=== PATIENT | female | born 1960 | race Caucasian/White ===

== ENCOUNTER 2018-11-28 19:23 | Emergency (ER) | payer OTHER ==
--- NOTE | 2018-11-28 20:04 | PDOC ---
History of Present Illness - General Stated Complaint: HYPERTENSION Time Seen by Provider: 11/28/18 19:33 - History of Present Illness Initial Comments: 11/28/18 20:08 58y/o F hx of diabetes, HTN, HLD, CAD s/p stent placement, left Carotid endardectomy, presents today from her Doctor's office with elevated BP. At her doctor's office her BP was 240/110 she was given Edarbyclor and bystolic. BP temporarily improved to 160's systolic but became elevated again shortly after. She did not take her BP meds this a.m. She experienced some lightheadedness while at the doctor's office but reports symptoms have resolved , She denies any headache, chest pain, abdominal pain, SOB, current lightheadedness, weakness or paresthesias, fevers/chills. She reports some dysuria. Past History - Past Medical History Allergies/Adverse Reactions: Allergies Allergy/AdvReac Type Severity Reaction Status Date / Time metformin Allergy Intermediate Rash Verified 11/28/18 21:31 Home Medications: Ambulatory Orders Aspirin 81 mg PO DAILY 11/28/18 Atorvastatin Ca [Lipitor] 80 mg PO HS 11/28/18 Ergocalciferol (Vitamin D2) [Vitamin D2] 50,000 unit PO WEEKLY 11/28/18 Hydrochlorothiazide [Hctz -] 12.5 mg PO DAILY 11/28/18 Metoprolol Succinate 50 mg PO DAILY 11/28/18 Sitagliptin Phosphate [Januvia] 100 mg PO DAILY 11/28/18 Review of Systems - Review of Systems Constitutional: No: Chills, Fever HEENTM: No: Eye Pain, Blurred Vision Respiratory: No: Cough Cardiac (ROS): No: Chest Pain, Syncope ABD/GI: No: Abdominal Distended, Blood Streaked Bowels : Yes: Burning, Dysuria Musculoskeletal: No: Back Pain Integumentary: No: Bruising, Change in Color Neurological: Yes: Symptoms reported, Headache *Physical Exam - Physical Exam General Appearance: Yes: Nourished, Appropriately Dressed. No: Apparent Distress HEENT: positive: EOMI, Normal Voice. negative: Scleral Icterus (R), Scleral Icterus (L) Neck: positive: Supple. negative: Tender Respiratory/Chest: positive: Lungs Clear, Normal Breath Sounds. negative: Chest Tender, Respiratory Distress, Accessory Muscle Use Cardiovascular: positive: Regular Rhythm, Regular Rate, S1, S2. negative: Edema , JVD Vascular Pulses: Dorsalis-Pedis (R): 2+, Doralis-Pedis (L): 2+ Gastrointestinal/Abdominal: positive: Normal Bowel Sounds, Soft. negative: Pulsatile Mass, Increased Bowel Sounds, Distended, Guarding, Rebound Musculoskeletal: positive: Normal Inspection. negative: CVA Tenderness Extremity: positive: Normal Capillary Refill, Normal Inspection, Normal Range of Motion Integumentary: positive: Normal Color, Dry, Warm Neurologic: positive: sugar coating hand II-XII NML intact, Fully Oriented, Alert, Normal Mood/ Affect, Normal Response, Motor Strength 07/20 ED Treatment Course - LABORATORY CBC & Chemistry Diagram: 11/28/18 21:10 11/28/18 21:10 Medical Decision Making - Medical Decision Making 11/28/18 20:13 58y/o F hx of diabetes, HTN, HLD, CAD s/p stent placement, left Carotid endardectomy, presents today from her Doctor's office with elevated BP cbc, cmp, ua, ekg, troponin, ekg Meds: 25mg po hydralazine 11/28/18 21:38 Pt. unable to give us any urine at this time. 11/28/18 22:07 BUN/Cr: 28/1.4, creatinine slightly elevated from upper limit of 1.3 Troponin pending 11/28/18 22:23 Troponin < 0.02 EKG: NSR , left ventricular hypertrophy T wave inversions, no ST elevations, Repeat blood pressure 186/77. Pt counseled on the importance of taking her medications and the sequelae of uncontrolled hypertension (i.e kidney failure, stroke, MS, ventricular hypertrophy). advised on possible ways to remember to take meds i.e setting reminders and keeping medications at bedside. Advised on lifetstyle modification as well (low salt intake, regular exercise, diet) Discharge with f/up to her PCP Dr. Caceres 11/28/18 22:33 11/28/18 23:08 *DC/Admit/Observation/Transfer Diagnosis at time of Disposition: Hypertension Qualifiers: Hypertension type: unspecified Qualified Code(s): I10 - Essential (primary) hypertension - Discharge Dispostion Disposition: HOME Condition at time of disposition: Stable - Referrals Referrals: Bridget Caceres MD [Primary Care Provider] - - Patient Instructions Printed Discharge Instructions: DI for High Blood Pressure, How to Monitor Your Blood Pressure at Home Additional Instructions: You were seen in the ER for elevated blood pressure. You were given medication in the ER.Your care is not complete until you follow up with your primary care doctor. It is important that you do so within the next few days ideally by Saturday. Take your home medications as prescribed by your primary care doctor. Please eat a low salt, low cholesterol diet. Please exercise regularly and maintain a healthy body weight. Please take your blood pressure medication as prescribed. Come back to the ER if any of your symptoms worsen. You develop headache, fever , chills, abdominal pain. - Post Discharge Activity
[2018-11-28] MEDS ORDERED: hydrALAZINE HCL 20 MG/ML VIAL IVPUSH ONE (20:08)
[2018-11-28 20:10] VITALS: TEMP 97.9; BMI 25.6
--- NOTE | 2018-11-28 20:13 | PDOC ---
Attending Attestation - Resident Resident Name: RachelDayamiPerrybetzaidanestor - HPI HPI: 11/28/18 23:23 Pt presents to the ED after sent in by Drs office for hypertension. Patient admits to non compliance with her medications today. Given bystolic in MDs office, but without relief. Denies chest pain or shortness of breath. Denies headache. States that she felt lightheaded initially, but now has no complaints. - Physicial Exam PE: 11/28/18 23:43 Agree with resident exam. PAtient is alert and oriented and in no acute distress. Lungs are clear. Heart regular rate and rhythm. Abdomen soft, non tender, non distended. - Medical Decision Making 11/28/18 23:45 Pt presents to the ED complaining of asymptomatic HTN. labs checked to evaluate for renal failure and are negative. BP improved after hydralizine in the ED. Will discharge with instructions to take her medication and follow up with PMD on Saturday.
[2018-11-28] MEDS ORDERED: hydrALAZINE HCL 20 MG/ML VIAL ONE (20:38)
[2018-11-28] MEDS ORDERED: hydrALAZINE HCL 25 MG TABLET (FP) PO ONE (21:03)
[2018-11-28 21:32] LABS: BASO % 0.8 % (0-2.0); EOS % 0.8 % (0-4.5); HEMATOCRIT 34.5 % (32.4-45.2); HEMOGLOBIN 11.5 GM/dL (10.7-15.3); LYMPH % 19.2 % (8-40); MCH 26.9 pg (25.7-33.7); MCHC 33.4 g/dl (32.0-36.0); MEAN CELL VOLUME 80.6 fl (80-96); MONO % 3.5 % (3.8-10.2); NEUT % 75.7 % (42.8-82.8); PLATELET COUNT 362 K/MM3 (134-434); RBC 4.28 M/mm3 (3.60-5.2); RDW 15.6 % (11.6-15.6); WHITE BLOOD COUNT 10.7 K/mm3 (4.0-10.0)
[2018-11-28 21:56] LABS: ALBUMIN 3.2 g/dl (3.4-5.0); BILIRUBIN,TOTAL 0.2 mg/dL (0.2-1); CALCIUM 9.3 mg/dL (8.5-10.1); CREATININE 1.4 mg/dL (0.55-1.3); TOT PROT 7.8 g/dl (6.4-8.2)
[2018-11-28 22:29] VITALS: BP 186/77; PULSE 64
--- NOTE | 2018-11-29 15:02 | EKG ---
Test Reason : Blood Pressure : / mmHG Vent. Rate : 068 BPM Atrial Rate : 068 BPM P-R Int : 194 ms QRS Dur : 090 ms QT Int : 452 ms P-R-T Axes : 028 -08 159 degrees QTc Int : 480 ms NORMAL SINUS RHYTHM LEFT VENTRICULAR HYPERTROPHY WITH REPOLARIZATION ABNORMALITY PROLONGED QT ABNORMAL ECG NO PREVIOUS ECGS AVAILABLE Confirmed by MD SINTIA, PETEY ([id number]) on 11/29/2018 3:02:21 PM Referred By: Confirmed By:PETEY PATRICIO MD
== END 2018-11-28 22:38 | disposition home or self-care (01) ==
LOC: JER 19:23
DX: I10 Essential (primary) hypertension (principal); I25.10 Atherosclerotic heart disease of native coronary artery without angina pectoris; Z95.5 Presence of coronary angioplasty implant and graft; E78.5 Hyperlipidemia, unspecified
CPT/HCPCS: 36415; 80053; 84484; 85025; 93005; 93010; 99282-25

== ENCOUNTER 2021-06-23 12:44 | Inpatient (IN) | payer OTHER ==
[2021-06-23 13:24] VITALS: BMI 26.3
[2021-06-23] MEDS ORDERED: AZITHROMYCIN IVPB 500 MG in DEXTROSE 5%-WATER - 250 ML IVPB ONE (14:38)
[2021-06-23] MEDS ORDERED: VANCOMYCIN 1 GM in D5W (PRE-DOCKED) 1,000 MG/250 ML IVPB ONE (14:38)
[2021-06-23] MEDS ORDERED: LACTATED RINGERS SOLUTION 1000 ML INFUS.BAG IV ONE (14:40)
[2021-06-23] MEDS ORDERED: PIPERACILLIN/TAZOB 3.375 GM 3.375 GM in DEXTROSE 5%-WATER - 50 ML IVPB ONE (14:44)
[2021-06-23 14:48] LABS: VENOUS BASE EXCESS -3.9 mmol/L (-2-2); VENOUS O2 SATURATION 58.5 % (70-80); VENOUS PCO2 36.3 mmHg (38-52); VENOUS PH 7.375 (7.310-7.410)
[2021-06-23 14:50] LABS: BASO % 0.5 % (0-2.0); EOS % 1.4 % (0-4.5); HEMATOCRIT 30.1 % (32.4-45.2); LYMPH % 19.3 % (8-40); MCH 27.5 pg (25.7-33.7); MCHC 33.1 g/dl (32.0-36.0); MEAN CELL VOLUME 83.2 fl (80-96); MEAN PLT VOLUME 8.5 fl (7.5-11.1); MONO % 5.3 % (3.8-10.2); NEUT % 73.5 % (42.8-82.8); PLATELET COUNT 421 10^3/uL (134-434); RBC 3.62 M/mm3 (3.60-5.2); RDW 14.9 % (11.6-15.6); WHITE BLOOD COUNT 10.4 K/mm3 (4.0-10.0)
[2021-06-23] MEDS ORDERED: VANCOMYCIN 1 GRAM (PRE-DOCKED) 1,000 MG/250 ML BAG IVPB ONE (14:52)
[2021-06-23] MEDS ORDERED: AZITHROMYCIN IVPB 500 MG/250 ML BAG IVPB ONE (14:52)
[2021-06-23 14:57] LABS: INR 0.97 (0.83-1.09); PROTHROMBIN TIME (PATIENT) 11.2 SEC (9.7-13.0)
[2021-06-23 15:00] LABS: ACTIVATED PTT 29.2 SECONDS (25.2-36.5)
[2021-06-23 15:12] LABS: ALBUMIN 2.3 g/dl (3.4-5.0); BLOOD UREA NITROGEN 50.4 mg/dL (7-18); CALCIUM 8.5 mg/dL (8.5-10.1)
[2021-06-23 15:17] LABS: BILIRUBIN,TOTAL 0.2 mg/dL (0.2-1); TOT PROT 6.1 g/dl (6.4-8.2)
[2021-06-23 15:23] LABS: CREATININE 2.6 mg/dL (0.55-1.3)
[2021-06-23 15:30] LABS: EPI CELLS 15 /uL (0-25.1); HYALINE CASTS 3 /uL (0-3.1); PH,URINE 5.5 (5.0-8.0); URINE APPEARANCE CLEAR; URINE BACTERIA 4 /uL (0-1359); URINE BILIRUBIN NEGATIVE (NEGATIVE); URINE COLOR YELLOW; URINE GLUCOSE (UA) 2+ (NEGATIVE); URINE KETONE NEGATIVE (NEGATIVE); URINE LEUK ESTERASE NEGATIVE (NEGATIVE); URINE NITRITE NEGATIVE (NEGATIVE); URINE PROTEIN 4+ (NEGATIVE); URINE RBC 5 /uL (0-23.9); URINE UROBILINOGEN 0.2 mg/dL (0.2-1.0); URINE WBC 9 /uL (0-25.8)
[2021-06-23] MEDS: INSULIN SLIDING SCALE (NOVOLOG) 1 VIAL SQ SCH (17:00)
[2021-06-23] MEDS ORDERED: PIPERACILLIN/TAZOB 3.375 GM 3.375 GM/50 ML BAG IVPB ONE (17:11)
[2021-06-23] MEDS ORDERED: DEXAMETHASONE SOD PHOSPHATE 10 MG/1 ML VIAL ONE (17:59)
[2021-06-23] MEDS ORDERED: ALBUTEROL SO4 2.5/IPRATROPIUM 0.5 INH SOL 3 ML VIAL.NEB. NEB ONE (18:02)
[2021-06-23] MEDS ORDERED: RACEPINEPHRINE IH SOL 2.25% 11.25 MG/0.5 ML VIAL NEB ONE ×2 (18:07→18:17)
[2021-06-23] MEDS ORDERED: RACEPINEPHRINE IH SOL 2.25% 11.25 MG/0.5 ML VIAL IH ONE (18:07)
[2021-06-23] MEDS ORDERED: DEXAMETHASONE SOD PHOSPHATE 20 MG/5 ML VIAL IVPB ONE (18:13)
[2021-06-23] MEDS: ALBUTEROL SO4 2.5/IPRATROPIUM 0.5 INH SOL 3 ML VIAL.NEB. NEB SCH ×4 (18:20→18:55)
[2021-06-23] MEDS: PIPERACILLIN/TAZOB 2.25 GM 2.25 GM in DEXTROSE 5%-WATER - 50 ML IVPB SCH (18:25)
[2021-06-23] MEDS ORDERED: FUROSEMIDE 40 MG/4 ML INJECTABLE VIAL ONE (19:39)
[2021-06-23] MEDS: FUROSEMIDE 40 MG/4 ML INJECTABLE VIAL IVPUSH SCH (19:46)
[2021-06-23 22:25] LABS: ARTERIAL BLD GAS O2 SATURATION 98.6 % (95-98); ARTERIAL BLOOD GAS BASE EXCESS -2.6 mmol/L (-2-2); ARTERIAL BLOOD GAS PO2 131.2 mmHg (80-100); ARTERIAL BLOOD GAS pH 7.402 (7.350-7.450)
[2021-06-23 22:31] LABS: ALLENS TEST POSITIVE
[2021-06-23 22:32] LABS: VENT MODE PSU; VENT RATE 12
[2021-06-23] MEDS ORDERED: HEPARIN NA (PORCINE) 5,000 UNITS/ML 1ML VIAL ONE (22:46)
[2021-06-23] MEDS ORDERED: ATORVASTATIN CA 80 MG TABLET (FP) ONE (22:46)
[2021-06-24] MEDS: ATORVASTATIN CA 80 MG TABLET (FP) PO SCH ×2 (00:59→22:06)
[2021-06-24] MEDS: HEPARIN NA (PORCINE) 5,000 UNITS/ML 1ML VIAL SQ SCH ×3 (00:59→22:05)
[2021-06-24] MEDS: INSULIN SLIDING SCALE (NOVOLOG) 1 VIAL SQ SCH ×5 (00:59→22:07)
[2021-06-24] MEDS ORDERED: PIPERACILLIN/TAZOB 2.25 GM 2.25 GM/50 ML BAG IVPB ONE (01:00)
[2021-06-24] MEDS: PIPERACILLIN/TAZOB 2.25 GM 2.25 GM in DEXTROSE 5%-WATER - 50 ML IVPB SCH ×3 (02:30→10:56)
[2021-06-24 09:17] LABS: BASO % 0.3 % (0-2.0); HEMATOCRIT 28.1 % (32.4-45.2); HEMOGLOBIN 9.5 GM/dL (10.7-15.3); LYMPH % 9.2 % (8-40); MCHC 33.9 g/dl (32.0-36.0); MEAN CELL VOLUME 82.6 fl (80-96); MEAN PLT VOLUME 8.2 fl (7.5-11.1); MONO % 1.7 % (3.8-10.2); NEUT % 88.8 % (42.8-82.8); PLATELET COUNT 381 10^3/uL (134-434); RBC 3.41 M/mm3 (3.60-5.2); RDW 14.5 % (11.6-15.6); WHITE BLOOD COUNT 8.5 K/mm3 (4.0-10.0)
[2021-06-24] MEDS ORDERED: PIPERACILLIN/TAZOBACTAM 2.25 GM VIAL IVPB ONE (09:25)
[2021-06-24] MEDS ORDERED: DEXTROSE 5%-WATER - 50 ML IVPB ONE (09:25)
[2021-06-24 09:32] LABS: CHLORIDE 105 mmol/L (98-107); SODIUM 137 mmol/L (136-145)
[2021-06-24 09:42] LABS: ANION GAP 11 MMOL/L (8-16); BLOOD UREA NITROGEN 52.6 mg/dL (7-18); CALCIUM 8.2 mg/dL (8.5-10.1); CO2 21 mmol/L (21-32); GLUCOSE,RANDOM 344 mg/dL (74-106); MAGNESIUM 1.9 mg/dL (1.8-2.4)
[2021-06-24 09:43] LABS: ALK PHOS 93 U/L (45-117); BILIRUBIN,TOTAL 0.3 mg/dL (0.2-1); SGPT/ALT 18 U/L (13-61); TOT PROT 5.8 g/dl (6.4-8.2); TRIGLYCERIDES 127 mg/dL (0-150)
[2021-06-24 09:44] LABS: HDL CHOLESTEROL 52 mg/dL (40-60); PHOSPHOROUS 4.7 mg/dL (2.5-4.9); SGOT/AST 20 U/L (15-37)
[2021-06-24 09:46] LABS: CHOLESTEROL 193 mg/dL (50-200); CREATININE 2.8 mg/dL (0.55-1.3); LDL CHOLESTEROL (ONLY SJRH) 117 mg/dL (5-100)
[2021-06-24] MEDS: ASPIRIN 81 MG CHEWABLE TABLETS PO SCH (09:47)
[2021-06-24] MEDS: LISINOPRIL 20 MG TABLET PO SCH (09:47)
[2021-06-24] MEDS: FUROSEMIDE 40 MG/4 ML INJECTABLE VIAL IVPUSH SCH (09:48)
[2021-06-24 09:53] LABS: ALBUMIN 1.8 g/dl (3.4-5.0)
[2021-06-24] MEDS ORDERED: HYDROCHLOROTHIAZIDE 12.5 MG CAPSULE (FP) PO SCH (10:00)
[2021-06-24] MEDS ORDERED: methylPREDNISolone NA SUCC 40 MG/1 ML VIAL IVPUSH SCH (18:00)
[2021-06-24 19:08] LABS: SARS-CoV-2 NAA Not Detected (Not Detected)
[2021-06-24] MEDS ORDERED: ATORVASTATIN CA 40 MG TABLET (FP) ONE (21:48)
[2021-06-24] MEDS: INSULIN (LEVEMIR) 100 UNITS/ML UNITS SQ SCH (22:05)
[2021-06-25 03:05] LABS: EPI CELLS 24 /uL (0-25.1); HYALINE CASTS 0 /uL (0-3.1); PH,URINE 6.5 (5.0-8.0); URINE APPEARANCE CLEAR; URINE BACTERIA 278 /uL (0-1359); URINE BILIRUBIN NEGATIVE (NEGATIVE); URINE COLOR YELLOW; URINE GLUCOSE (UA) TRACE (NEGATIVE); URINE KETONE NEGATIVE (NEGATIVE); URINE LEUK ESTERASE NEGATIVE (NEGATIVE); URINE NITRITE NEGATIVE (NEGATIVE); URINE PROTEIN 3+ (NEGATIVE); URINE RBC 20 /uL (0-23.9); URINE UROBILINOGEN 0.2 mg/dL (0.2-1.0); URINE WBC 5 /uL (0-25.8)
[2021-06-25] MEDS: FUROSEMIDE 40 MG/4 ML INJECTABLE VIAL IVPUSH SCH ×2 (06:19→13:10)
[2021-06-25] MEDS: INSULIN (LEVEMIR) 100 UNITS/ML UNITS SQ SCH ×2 (06:19→21:23)
[2021-06-25] MEDS: INSULIN SLIDING SCALE (NOVOLOG) 1 VIAL SQ SCH ×4 (06:20→21:23)
[2021-06-25 08:47] LABS: BASO % 0.4 % (0-2.0); EOS % 1.3 % (0-4.5); HEMATOCRIT 28.9 % (32.4-45.2); HEMOGLOBIN 9.6 GM/dL (10.7-15.3); LYMPH % 24.7 % (8-40); MCH 27.8 pg (25.7-33.7); MCHC 33.4 g/dl (32.0-36.0); MEAN CELL VOLUME 83.5 fl (80-96); MEAN PLT VOLUME 8.4 fl (7.5-11.1); MONO % 5.2 % (3.8-10.2); NEUT % 68.4 % (42.8-82.8); PLATELET COUNT 360 10^3/uL (134-434); RBC 3.46 M/mm3 (3.60-5.2); RDW 14.8 % (11.6-15.6); WHITE BLOOD COUNT 13.1 K/mm3 (4.0-10.0)
[2021-06-25 09:11] LABS: ALBUMIN 1.9 g/dl (3.4-5.0)
[2021-06-25 09:12] LABS: BLOOD UREA NITROGEN 59.1 mg/dL (7-18)
[2021-06-25 09:13] LABS: CALCIUM 8.4 mg/dL (8.5-10.1)
[2021-06-25 09:15] LABS: CREATININE 2.8 mg/dL (0.55-1.3)
[2021-06-25 09:16] LABS: BILIRUBIN,TOTAL 0.3 mg/dL (0.2-1); TOT PROT 5.7 g/dl (6.4-8.2)
[2021-06-25] MEDS: LISINOPRIL 20 MG TABLET PO SCH (09:32)
[2021-06-25] MEDS: HEPARIN NA (PORCINE) 5,000 UNITS/ML 1ML VIAL SQ SCH ×2 (09:32→21:15)
[2021-06-25] MEDS: ASPIRIN 81 MG CHEWABLE TABLETS PO SCH (09:32)
[2021-06-25] MEDS ORDERED: ATORVASTATIN CA 40 MG TABLET (FP) ONE (21:09)
[2021-06-25] MEDS: ATORVASTATIN CA 80 MG TABLET (FP) PO SCH (21:15)
[2021-06-26] MEDS: INSULIN SLIDING SCALE (NOVOLOG) 1 VIAL SQ SCH ×4 (06:09→22:14)
[2021-06-26] MEDS: FUROSEMIDE 40 MG/4 ML INJECTABLE VIAL IVPUSH SCH ×2 (06:47→15:04)
[2021-06-26] MEDS: INSULIN (LEVEMIR) 100 UNITS/ML UNITS SQ SCH ×2 (06:47→22:14)
[2021-06-26] MEDS: LISINOPRIL 20 MG TABLET PO SCH (09:29)
[2021-06-26] MEDS: HEPARIN NA (PORCINE) 5,000 UNITS/ML 1ML VIAL SQ SCH ×2 (09:30→22:11)
[2021-06-26] MEDS: ASPIRIN 81 MG CHEWABLE TABLETS PO SCH (09:30)
[2021-06-26 09:36] LABS: BASO % 0.7 % (0-2.0); EOS % 2.7 % (0-4.5); HEMATOCRIT 30.9 % (32.4-45.2); HEMOGLOBIN 10.6 GM/dL (10.7-15.3); LYMPH % 30.3 % (8-40); MCHC 34.3 g/dl (32.0-36.0); MEAN CELL VOLUME 81.7 fl (80-96); MEAN PLT VOLUME 8.1 fl (7.5-11.1); MONO % 5.2 % (3.8-10.2); NEUT % 61.1 % (42.8-82.8); PLATELET COUNT 436 10^3/uL (134-434); RBC 3.78 M/mm3 (3.60-5.2); RDW 14.5 % (11.6-15.6)
[2021-06-26 09:52] LABS: CALCIUM 8.9 mg/dL (8.5-10.1)
[2021-06-26 09:53] LABS: ALBUMIN 2.2 g/dl (3.4-5.0); BLOOD UREA NITROGEN 63.6 mg/dL (7-18)
[2021-06-26 09:56] LABS: CREATININE 2.7 mg/dL (0.55-1.3)
[2021-06-26 09:58] LABS: BILIRUBIN,TOTAL 0.3 mg/dL (0.2-1); TOT PROT 6.4 g/dl (6.4-8.2)
[2021-06-26] MEDS ORDERED: ATORVASTATIN CA 40 MG TABLET (FP) ONE (21:26)
[2021-06-26] MEDS: ATORVASTATIN CA 80 MG TABLET (FP) PO SCH (22:11)
[2021-06-27] MEDS: INSULIN SLIDING SCALE (NOVOLOG) 1 VIAL SQ SCH ×3 (06:00→16:13)
[2021-06-27] MEDS: INSULIN (LEVEMIR) 100 UNITS/ML UNITS SQ SCH (06:00)
[2021-06-27] MEDS: FUROSEMIDE 40 MG/4 ML INJECTABLE VIAL IVPUSH SCH (06:00)
[2021-06-27] MEDS: HEPARIN NA (PORCINE) 5,000 UNITS/ML 1ML VIAL SQ SCH (09:52)
[2021-06-27] MEDS: ASPIRIN 81 MG CHEWABLE TABLETS PO SCH (09:52)
[2021-06-27] MEDS: LISINOPRIL 20 MG TABLET PO SCH (09:53)
[2021-06-27] MEDS ORDERED: DIVALPROEX NA *ER* EXTEND REL 500 MG TABLET.SA (FP) PO SCH ×2 (10:00)
[2021-06-27] MEDS ORDERED: LACOSAMIDE 50 MG TABLET PO SCH (10:00)
[2021-06-27] MEDS ORDERED: FUROSEMIDE 40 MG TABLET (FP) PO SCH (10:00)
[2021-06-27 13:59] VITALS: BP 110/50; PULSE 64; TEMP 98.3
== END 2021-06-27 18:00 | disposition home or self-care (01) | DRG 291 ==
LOC: JER 12:44 → JERBED 13:03 → J4S 06-24 04:47
PROVIDERS: ADMIT Family Medicine; ATTEND Family Medicine
DX: I13.0 Hypertensive heart and chronic kidney disease with heart failure and stage 1 through stage 4 chronic kidney disease, or unspecified chronic kidney disease (principal); I50.33 Acute on chronic diastolic (congestive) heart failure; I50.32 Chronic diastolic (congestive) heart failure; I24.8 Other forms of acute ischemic heart disease; N18.9 Chronic kidney disease, unspecified; F03.90 Unspecified dementia, unspecified severity, without behavioral disturbance, psychotic disturbance, mood disturbance, and anxiety; E78.5 Hyperlipidemia, unspecified; E11.9 Type 2 diabetes mellitus without complications; D72.829 Elevated white blood cell count, unspecified; I25.10 Atherosclerotic heart disease of native coronary artery without angina pectoris; Z98.61 Coronary angioplasty status
CPT/HCPCS: 36415; 36600; 70450-TC; 71045-TC-FY; 76775-TC; 76856-TC; 80053; 80061; 81003; 82570; 82803; 82962; 83036; 83605; 83690; 83735; 83880; 84100; 84156; 84443; 84484; 85025; 85610; 85730; 87086; 93005; 93010; 93306-TC; 94660; 94761; 97116-GP; 97161-GP; 99285-25; C9803-CS; J1644; U0003; U0005

== ENCOUNTER 2021-09-04 13:31 | Inpatient (IN) | payer OTHER ==
[2021-09-04 15:15] LABS: BASO % 2.8 % (0-2.0); EOS % 1.4 % (0-4.5); HEMATOCRIT 35.2 % (32.4-45.2); LYMPH % 20.9 % (8-40); MCH 27.6 pg (25.7-33.7); MEAN CELL VOLUME 81.2 fl (80-96); MEAN PLT VOLUME 8.3 fl (7.5-11.1); MONO % 5.8 % (3.8-10.2); NEUT % 69.1 % (42.8-82.8); PLATELET COUNT 464 10^3/uL (134-434); RBC 4.34 M/mm3 (3.60-5.2); RDW 14.3 % (11.6-15.6); WHITE BLOOD COUNT 10.5 K/mm3 (4.0-10.0)
[2021-09-04 15:31] LABS: CALCIUM 8.9 mg/dL (8.5-10.1)
[2021-09-04 15:32] LABS: ALBUMIN 2.3 g/dl (3.4-5.0); BLOOD UREA NITROGEN 24.6 mg/dL (7-18)
[2021-09-04 15:37] LABS: BILIRUBIN,TOTAL 0.4 mg/dL (0.2-1); TOT PROT 6.8 g/dl (6.4-8.2)
[2021-09-04] MEDS ORDERED: ACETAMINOPHEN 325 MG TABLET (FP) PO ONE (20:22)
[2021-09-04] MEDS ORDERED: ACETAMINOPHEN 325 MG TABLET (FP) ONE (20:29)
[2021-09-04] MEDS ORDERED: INSULIN (LEVEMIR) 100 UNITS/ML UNITS SQ ONE (23:25)
[2021-09-04] MEDS: INSULIN (LEVEMIR) 100 UNITS/ML UNITS SQ SCH (23:28)
[2021-09-05 09:35] LABS: CHLORIDE 106 mmol/L (98-107); SODIUM 139 mmol/L (136-145)
[2021-09-05 09:39] LABS: ALBUMIN 2.4 g/dl (3.4-5.0); ANION GAP 8 MMOL/L (8-16); CALCIUM 8.7 mg/dL (8.5-10.1); CO2 25 mmol/L (21-32); GLUCOSE,RANDOM 217 mg/dL (74-106)
[2021-09-05 09:41] LABS: BLOOD UREA NITROGEN 27.2 mg/dL (7-18)
[2021-09-05 09:42] LABS: CHOLESTEROL 305 mg/dL (50-200)
[2021-09-05 09:44] LABS: BILIRUBIN,TOTAL 0.3 mg/dL (0.2-1); CREATININE 2.1 mg/dL (0.55-1.3); LDL CHOLESTEROL (ONLY SJRH) 210 mg/dL (5-100)
[2021-09-05 09:45] LABS: ALK PHOS 103 U/L (45-117); HDL CHOLESTEROL 48 mg/dL (40-60)
[2021-09-05 09:47] LABS: SGOT/AST 19 U/L (15-37)
[2021-09-05 09:48] LABS: SGPT/ALT 11 U/L (13-61); TRIGLYCERIDES 244 mg/dL (0-150)
[2021-09-05 09:50] LABS: TOT PROT 6.2 g/dl (6.4-8.2)
[2021-09-05 10:54] LABS: BASO % 0.7 % (0-2.0); EOS % 1.4 % (0-4.5); HEMATOCRIT 34.7 % (32.4-45.2); HEMOGLOBIN 11.9 GM/dL (10.7-15.3); LYMPH % 29.5 % (8-40); MCH 27.6 pg (25.7-33.7); MCHC 34.3 g/dl (32.0-36.0); MEAN CELL VOLUME 80.6 fl (80-96); MONO % 5.5 % (3.8-10.2); NEUT % 62.9 % (42.8-82.8); PLATELET COUNT 453 10^3/uL (134-434); RDW 14.2 % (11.6-15.6); WHITE BLOOD COUNT 8.3 K/mm3 (4.0-10.0)
[2021-09-05] MEDS ORDERED: ONDANSETRON 4 MG/2 ML VIAL IVPUSH ONE (11:30)
[2021-09-05] MEDS ORDERED: ONDANSETRON 4 MG/2 ML VIAL ONE (12:40)
[2021-09-05] MEDS ORDERED: FUROSEMIDE 40 MG/4 ML INJECTABLE VIAL IVPUSH ONE (14:15)
[2021-09-05] MEDS ORDERED: FUROSEMIDE 40 MG/4 ML INJECTABLE VIAL ONE (14:20)
[2021-09-05] MEDS ORDERED: ASPIRIN COATED 81 MG TABLET.EC ONE (16:37)
[2021-09-05] MEDS: ASPIRIN COATED 81 MG TABLET.EC PO SCH (16:48)
[2021-09-05 16:55] LABS: EPI CELLS >36 /uL (0-25.1); HYALINE CASTS 2 /uL (0-3.1); PH,URINE 6.5 (5.0-8.0); URINE APPEARANCE CLOUDY; URINE BACTERIA 3934 /uL (0-1359); URINE BILIRUBIN NEGATIVE (NEGATIVE); URINE COLOR YELLOW; URINE GLUCOSE (UA) 2+ (NEGATIVE); URINE KETONE NEGATIVE (NEGATIVE); URINE LEUK ESTERASE NEGATIVE (NEGATIVE); URINE NITRITE NEGATIVE (NEGATIVE); URINE PROTEIN 4+ (NEGATIVE); URINE RBC 16 /uL (0-23.9); URINE UROBILINOGEN 0.2 mg/dL (0.2-1.0); URINE WBC 52 /uL (0-25.8)
[2021-09-05] MEDS: DIVALPROEX SODIUM 500 MG TABLET E.C. PO SCH (21:53)
[2021-09-05] MEDS: ATORVASTATIN CA 80 MG TABLET (FP) PO SCH (21:53)
[2021-09-05] MEDS: LACOSAMIDE 50 MG TABLET PO SCH (21:53)
[2021-09-05] MEDS: INSULIN (LEVEMIR) 100 UNITS/ML UNITS SQ SCH (21:54)
[2021-09-05 22:43] VITALS: BMI 24.1
[2021-09-06 07:08] LABS: BASO % 0.4 % (0-2.0); EOS % 3.4 % (0-4.5); HEMOGLOBIN 10.8 GM/dL (10.7-15.3); LYMPH % 32.9 % (8-40); MCH 28.2 pg (25.7-33.7); MCHC 34.8 g/dl (32.0-36.0); MEAN CELL VOLUME 80.9 fl (80-96); MEAN PLT VOLUME 7.5 fl (7.5-11.1); MONO % 5.3 % (3.8-10.2); PLATELET COUNT 397 10^3/uL (134-434); RBC 3.83 M/mm3 (3.60-5.2); RDW 14.3 % (11.6-15.6); WHITE BLOOD COUNT 7.5 K/mm3 (4.0-10.0)
[2021-09-06 07:31] LABS: CALCIUM 8.5 mg/dL (8.5-10.1)
[2021-09-06 07:33] LABS: ALBUMIN 2.1 g/dl (3.4-5.0); BLOOD UREA NITROGEN 31.9 mg/dL (7-18)
[2021-09-06 07:36] LABS: CREATININE 2.3 mg/dL (0.55-1.3); PHOSPHOROUS 3.8 mg/dL (2.5-4.9)
[2021-09-06 07:37] LABS: BILIRUBIN,TOTAL 0.2 mg/dL (0.2-1); TOT PROT 5.7 g/dl (6.4-8.2)
[2021-09-06] MEDS: ASPIRIN COATED 81 MG TABLET.EC PO SCH (10:50)
[2021-09-06] MEDS: LACOSAMIDE 50 MG TABLET PO SCH ×2 (10:50→21:38)
[2021-09-06] MEDS: DIVALPROEX SODIUM 500 MG TABLET E.C. PO SCH ×2 (11:16→21:38)
[2021-09-06] MEDS: LISINOPRIL 20 MG TABLET PO SCH (12:47)
[2021-09-06] MEDS: INSULIN SLIDING SCALE (NOVOLOG) 1 VIAL SQ SCH ×2 (17:40→21:38)
[2021-09-06] MEDS: INSULIN (LEVEMIR) 100 UNITS/ML UNITS SQ SCH (21:38)
[2021-09-06] MEDS: ATORVASTATIN CA 80 MG TABLET (FP) PO SCH (21:38)
[2021-09-07] MEDS: INSULIN SLIDING SCALE (NOVOLOG) 1 VIAL SQ SCH ×4 (06:09→21:18)
[2021-09-07 07:34] LABS: CALCIUM 8.6 mg/dL (8.5-10.1)
[2021-09-07 07:36] LABS: CREATININE 2.3 mg/dL (0.55-1.3)
[2021-09-07] MEDS: LACOSAMIDE 50 MG TABLET PO SCH ×2 (09:20→21:12)
[2021-09-07] MEDS: ASPIRIN COATED 81 MG TABLET.EC PO SCH (09:22)
[2021-09-07] MEDS: LISINOPRIL 20 MG TABLET PO SCH (09:22)
[2021-09-07] MEDS: DIVALPROEX SODIUM 500 MG TABLET E.C. PO SCH ×2 (09:22→21:12)
[2021-09-07] MEDS: ATORVASTATIN CA 80 MG TABLET (FP) PO SCH (21:12)
[2021-09-07] MEDS: INSULIN (LEVEMIR) 100 UNITS/ML UNITS SQ SCH (21:17)
[2021-09-07] MEDS: HEPARIN NA (PORCINE) 5,000 UNITS/ML 1ML VIAL SQ SCH (23:45)
[2021-09-08] MEDS: HEPARIN NA (PORCINE) 5,000 UNITS/ML 1ML VIAL SQ SCH ×3 (05:57→21:53)
[2021-09-08] MEDS: INSULIN SLIDING SCALE (NOVOLOG) 1 VIAL SQ SCH ×4 (05:59→22:05)
[2021-09-08 08:08] LABS: BASO % 0.8 % (0-2.0); EOS % 1.9 % (0-4.5); HEMOGLOBIN 11.1 GM/dL (10.7-15.3); LYMPH % 27.1 % (8-40); MCH 27.5 pg (25.7-33.7); MCHC 33.7 g/dl (32.0-36.0); MEAN CELL VOLUME 81.5 fl (80-96); NEUT % 65.2 % (42.8-82.8); PLATELET COUNT 402 10^3/uL (134-434); RBC 4.05 M/mm3 (3.60-5.2); RDW 14.6 % (11.6-15.6); WHITE BLOOD COUNT 7.5 K/mm3 (4.0-10.0)
[2021-09-08 08:25] LABS: ALBUMIN 2.2 g/dl (3.4-5.0); BLOOD UREA NITROGEN 35.6 mg/dL (7-18); CALCIUM 8.5 mg/dL (8.5-10.1)
[2021-09-08 08:29] LABS: BILIRUBIN,TOTAL 0.5 mg/dL (0.2-1); CREATININE 2.3 mg/dL (0.55-1.3); TOT PROT 5.6 g/dl (6.4-8.2)
[2021-09-08] MEDS: DIVALPROEX SODIUM 500 MG TABLET E.C. PO SCH ×2 (10:11→21:52)
[2021-09-08] MEDS: LACOSAMIDE 50 MG TABLET PO SCH ×2 (10:11→21:53)
[2021-09-08] MEDS: ASPIRIN COATED 81 MG TABLET.EC PO SCH (10:11)
[2021-09-08] MEDS: LISINOPRIL 20 MG TABLET PO SCH (10:11)
[2021-09-08] MEDS: FUROSEMIDE 40 MG TABLET (FP) PO SCH (13:19)
[2021-09-08] MEDS: ATORVASTATIN CA 80 MG TABLET (FP) PO SCH (21:53)
[2021-09-08] MEDS: INSULIN (LEVEMIR) 100 UNITS/ML UNITS SQ SCH (21:59)
[2021-09-09] MEDS: HEPARIN NA (PORCINE) 5,000 UNITS/ML 1ML VIAL SQ SCH ×3 (05:36→21:28)
[2021-09-09 07:12] LABS: CHLORIDE 112 mmol/L (98-107); SODIUM 147 mmol/L (136-145)
[2021-09-09 07:18] LABS: BLOOD UREA NITROGEN 29.9 mg/dL (7-18)
[2021-09-09 07:23] LABS: ALBUMIN 2.2 g/dl (3.4-5.0); ALK PHOS 87 U/L (45-117); ANION GAP 8 MMOL/L (8-16); BILIRUBIN,TOTAL 0.1 mg/dL (0.2-1); CALCIUM 8.7 mg/dL (8.5-10.1); CO2 28 mmol/L (21-32); CREATININE 2.1 mg/dL (0.55-1.3); GLUCOSE,RANDOM 45 mg/dL (74-106); MAGNESIUM 2.2 mg/dL (1.8-2.4); SGOT/AST 13 U/L (15-37); SGPT/ALT 9 U/L (13-61); TOT PROT 5.9 g/dl (6.4-8.2)
[2021-09-09] MEDS: INSULIN SLIDING SCALE (NOVOLOG) 1 VIAL SQ SCH ×4 (08:00→21:29)
[2021-09-09] MEDS: FUROSEMIDE 40 MG TABLET (FP) PO SCH (09:54)
[2021-09-09] MEDS: ASPIRIN COATED 81 MG TABLET.EC PO SCH (09:54)
[2021-09-09] MEDS: LISINOPRIL 20 MG TABLET PO SCH (09:54)
[2021-09-09] MEDS: LACOSAMIDE 50 MG TABLET PO SCH ×2 (09:54→21:29)
[2021-09-09] MEDS: DIVALPROEX SODIUM 500 MG TABLET E.C. PO SCH ×2 (09:56→21:28)
[2021-09-09] MEDS ORDERED: POTASSIUM CHLORIDE TABS 20 MEQ TABLET.ER (FP) PO ONE (10:17)
[2021-09-09] MEDS: INSULIN (LEVEMIR) 100 UNITS/ML UNITS SQ SCH (21:28)
[2021-09-09] MEDS: ATORVASTATIN CA 80 MG TABLET (FP) PO SCH (21:28)
[2021-09-09] MEDS ORDERED: PROCHLORPERAZINE INJECTION 10 MG/2 ML VIAL IVPB ONE (22:47)
[2021-09-09] MEDS ORDERED: ACETAMINOPHEN 1000 MG/100 ML BAG IVPB ONE (22:48)
[2021-09-10] MEDS ORDERED: DEXTROSE 50%-WATER - 25 GM/50 ML VIAL IVPUSH ONE (06:58)
[2021-09-10] MEDS: INSULIN SLIDING SCALE (NOVOLOG) 1 VIAL SQ SCH ×4 (07:00→21:31)
[2021-09-10] MEDS: HEPARIN NA (PORCINE) 5,000 UNITS/ML 1ML VIAL SQ SCH ×3 (07:02→21:21)
[2021-09-10 07:30] LABS: CALCIUM 8.5 mg/dL (8.5-10.1)
[2021-09-10 07:31] LABS: ALBUMIN 2.2 g/dl (3.4-5.0); BLOOD UREA NITROGEN 25.2 mg/dL (7-18); MAGNESIUM 2.1 mg/dL (1.8-2.4)
[2021-09-10 07:34] LABS: PHOSPHOROUS 3.4 mg/dL (2.5-4.9)
[2021-09-10 07:35] LABS: BILIRUBIN,TOTAL 0.3 mg/dL (0.2-1); TOT PROT 5.9 g/dl (6.4-8.2)
[2021-09-10] MEDS ORDERED: INSULIN (LEVEMIR) 100 UNITS/ML UNITS SQ SCH (08:19)
[2021-09-10] MEDS: FUROSEMIDE 40 MG TABLET (FP) PO SCH (10:58)
[2021-09-10] MEDS: DIVALPROEX SODIUM 500 MG TABLET E.C. PO SCH ×2 (10:58→21:21)
[2021-09-10] MEDS: LISINOPRIL 20 MG TABLET PO SCH (10:58)
[2021-09-10] MEDS: LACOSAMIDE 50 MG TABLET PO SCH ×2 (10:58→21:21)
[2021-09-10] MEDS: ASPIRIN COATED 81 MG TABLET.EC PO SCH (10:58)
[2021-09-10] MEDS ORDERED: DEXTROSE 5%-WATER - 1,000 ML with POTASSIUM CHLORIDE 10 MEQ IV SCH (11:45)
[2021-09-10] MEDS ORDERED: DEXTROSE 50%-WATER 25 GM/50 ML DISP.SYRIN IVPUSH ONE (12:00)
[2021-09-10] MEDS: ATORVASTATIN CA 80 MG TABLET (FP) PO SCH (21:21)
[2021-09-11] MEDS: HEPARIN NA (PORCINE) 5,000 UNITS/ML 1ML VIAL SQ SCH (06:10)
[2021-09-11] MEDS: INSULIN SLIDING SCALE (NOVOLOG) 1 VIAL SQ SCH ×3 (06:34→11:35)
[2021-09-11 08:02] LABS: HEMATOCRIT 35.6 % (32.4-45.2); HEMOGLOBIN 11.9 GM/dL (10.7-15.3); MCH 27.8 pg (25.7-33.7); MCHC 33.6 g/dl (32.0-36.0); MEAN CELL VOLUME 82.7 fl (80-96); MEAN PLT VOLUME 8.5 fl (7.5-11.1); PLATELET COUNT 377 10^3/uL (134-434); RDW 14.1 % (11.6-15.6); WHITE BLOOD COUNT 7.6 K/mm3 (4.0-10.0)
[2021-09-11 08:25] LABS: ALBUMIN 2.3 g/dl (3.4-5.0); BLOOD UREA NITROGEN 23.2 mg/dL (7-18)
[2021-09-11 08:26] LABS: BILIRUBIN,TOTAL 0.3 mg/dL (0.2-1); CALCIUM 8.4 mg/dL (8.5-10.1); TOT PROT 6.2 g/dl (6.4-8.2)
[2021-09-11] MEDS: LACOSAMIDE 50 MG TABLET PO SCH (09:17)
[2021-09-11] MEDS: LISINOPRIL 20 MG TABLET PO SCH (09:17)
[2021-09-11] MEDS: DIVALPROEX SODIUM 500 MG TABLET E.C. PO SCH (09:17)
[2021-09-11] MEDS: FUROSEMIDE 40 MG TABLET (FP) PO SCH (09:17)
[2021-09-11] MEDS: ASPIRIN COATED 81 MG TABLET.EC PO SCH (09:17)
[2021-09-11] MEDS ORDERED: INSULIN (LEVEMIR) 100 UNITS/ML UNITS SQ SCH (10:00)
[2021-09-11] MEDS ORDERED: amLODIPine BESYLATE 5 MG TABLET (FP) PO SCH (10:00)
[2021-09-11] MEDS ORDERED: INSULIN (NOVOLOG) ASPART 100 UNITS/ML 10ML VIAL ONE (11:34)
[2021-09-11 14:43] VITALS: BP 150/61; PULSE 77; TEMP 99.2
== END 2021-09-11 15:30 | disposition home health service (06) | DRG 312 ==
LOC: JER 13:31 → JERBED 19:50 → J4W 09-05 20:58
PROVIDERS: ADMIT Internal Medicine; ATTEND Internal Medicine
DX: I95.1 Orthostatic hypotension (principal); I13.0 Hypertensive heart and chronic kidney disease with heart failure and stage 1 through stage 4 chronic kidney disease, or unspecified chronic kidney disease; N17.9 Acute kidney failure, unspecified; J98.11 Atelectasis; N18.4 Chronic kidney disease, stage 4 (severe); F03.90 Unspecified dementia, unspecified severity, without behavioral disturbance, psychotic disturbance, mood disturbance, and anxiety; J44.9 Chronic obstructive pulmonary disease, unspecified; E11.22 Type 2 diabetes mellitus with diabetic chronic kidney disease; E78.5 Hyperlipidemia, unspecified; I25.10 Atherosclerotic heart disease of native coronary artery without angina pectoris; Z98.61 Coronary angioplasty status
CPT/HCPCS: 0241U-QW; 36415; 70450-TC; 71045-TC-FY; 80048; 80053; 80061; 81003; 82962; 83735; 83880; 84100; 84443; 84484; 85025; 85027; 87086; 93005; 93010; 97116-GP; 97161-GP; 99285-25; J1644

== ENCOUNTER 2021-10-03 18:00 | Inpatient (IN) | payer OTHER ==
[2021-10-03] MEDS ORDERED: SODIUM CHLORIDE 1,837 ML IV ONE (19:31)
[2021-10-03] MEDS ORDERED: SODIUM CHLORIDE 0.9% 500 ML INFUS.BAG IV ONE (20:31)
[2021-10-03] MEDS ORDERED: GLUCAGON 1 MG KIT ONE (20:42)
[2021-10-03] MEDS ORDERED: DEXTROSE 50%-WATER - 25 GM/50 ML VIAL IVPUSH ONE (20:43)
[2021-10-03] MEDS ORDERED: DEXTROSE 50%-WATER 25 GM/50 ML DISP.SYRIN ONE (20:43)
[2021-10-03 21:00] LABS: VENOUS BASE EXCESS -4.1 mmol/L (-2-2); VENOUS O2 SATURATION 72.7 % (70-80); VENOUS PCO2 42.8 mmHg (38-52); VENOUS PH 7.324 (7.310-7.410)
[2021-10-03 21:01] LABS: BASO % 0.5 % (0-2.0); EOS % 0.3 % (0-4.5); HEMATOCRIT 35.6 % (32.4-45.2); HEMOGLOBIN 12.3 GM/dL (10.7-15.3); LYMPH % 14.3 % (8-40); MCH 27.7 pg (25.7-33.7); MCHC 34.4 g/dl (32.0-36.0); MEAN CELL VOLUME 80.6 fl (80-96); MONO % 5.2 % (3.8-10.2); NEUT % 79.7 % (42.8-82.8); PLATELET COUNT 516 10^3/uL (134-434); RBC 4.42 M/mm3 (3.60-5.2); RDW 14.4 % (11.6-15.6); WHITE BLOOD COUNT 11.9 K/mm3 (4.0-10.0)
[2021-10-03 21:09] LABS: INR 0.99 (0.83-1.09); PROTHROMBIN TIME (PATIENT) 11.4 SEC (9.7-13.0)
[2021-10-03 21:12] LABS: ACTIVATED PTT 28.3 SECONDS (25.2-36.5)
[2021-10-03 21:19] LABS: CHLORIDE 108 mmol/L (98-107); SODIUM 144 mmol/L (136-145)
[2021-10-03 21:21] LABS: CALCIUM 10.1 mg/dL (8.5-10.1)
[2021-10-03 21:22] LABS: ANION GAP 13 MMOL/L (8-16); CO2 23 mmol/L (21-32)
[2021-10-03 21:24] LABS: SGPT/ALT 14 U/L (13-61)
[2021-10-03 21:25] LABS: CREATININE 2.4 mg/dL (0.55-1.3); SGOT/AST 17 U/L (15-37)
[2021-10-03 21:26] LABS: BILIRUBIN,TOTAL 0.2 mg/dL (0.2-1); TOT PROT 7.8 g/dl (6.4-8.2)
[2021-10-03 21:27] LABS: ALK PHOS 125 U/L (45-117)
[2021-10-03 21:44] LABS: GLUCOSE,RANDOM 30 mg/dL (74-106); LACTIC ACID 4.1 mmol/L (0.4-2.0)
[2021-10-03] MEDS ORDERED: POTASSIUM CHLORIDE ORAL LIQUID 20 MEQ/15 ML PO ONE (22:39)
[2021-10-04] MEDS ORDERED: POTASSIUM CHLORIDE ORAL LIQUID 20 MEQ/15 ML ONE (00:20)
[2021-10-04] MEDS ORDERED: POTASSIUM CHLORIDE 20 MEQ PREMIX IVPB 100 ML IVPB ONE (00:37)
[2021-10-04] MEDS ORDERED: ONDANSETRON 4 MG/2 ML VIAL IVPUSH ONE (00:38)
[2021-10-04 01:07] LABS: EPI CELLS 19 /uL (0-25.1); HYALINE CASTS 4 /uL (0-3.1); PH,URINE 6.5 (5.0-8.0); URINE APPEARANCE CLEAR; URINE BACTERIA 15 /uL (0-1359); URINE BILIRUBIN NEGATIVE (NEGATIVE); URINE COLOR YELLOW; URINE GLUCOSE (UA) 2+ (NEGATIVE); URINE KETONE NEGATIVE (NEGATIVE); URINE LEUK ESTERASE NEGATIVE (NEGATIVE); URINE NITRITE NEGATIVE (NEGATIVE); URINE PROTEIN 4+ (NEGATIVE); URINE RBC 6 /uL (0-23.9); URINE UROBILINOGEN 0.2 mg/dL (0.2-1.0); URINE WBC 13 /uL (0-25.8)
[2021-10-04] MEDS ORDERED: KCL 10 MEQ IVPB 10 MEQ/100 ML INFUS.BAG IVPB ONE ×3 (01:31→05:50)
[2021-10-04] MEDS: KCL 10 MEQ IVPB 10 MEQ/100 ML INFUS.BAG IVPB SCH ×3 (01:41→06:21)
[2021-10-04 01:49] LABS: LACTIC ACID 3.6 mmol/L (0.4-2.0)
[2021-10-04] MEDS ORDERED: ASPIRIN 81 MG CHEWABLE TABLETS PO ONE (01:54)
[2021-10-04] MEDS ORDERED: ASPIRIN 81 MG CHEWABLE TABLETS ONE ×3 (02:08→11:23)
[2021-10-04] MEDS ORDERED: VANCOMYCIN 1 GRAM (PRE-DOCKED) 1,000 MG/250 ML BAG IVPB ONE (05:05)
[2021-10-04 07:16] LABS: CHLORIDE 109 mmol/L (98-107); SODIUM 139 mmol/L (136-145)
[2021-10-04 07:21] LABS: CALCIUM 8.8 mg/dL (8.5-10.1)
[2021-10-04 07:22] LABS: ANION GAP 8 MMOL/L (8-16); CO2 22 mmol/L (21-32); MAGNESIUM 2.1 mg/dL (1.8-2.4)
[2021-10-04 07:23] LABS: GLUCOSE,RANDOM 198 mg/dL (74-106)
[2021-10-04 07:24] LABS: ALBUMIN 2.4 g/dl (3.4-5.0); BLOOD UREA NITROGEN 30.5 mg/dL (7-18); SGOT/AST 33 U/L (15-37); SGPT/ALT 13 U/L (13-61)
[2021-10-04 07:26] LABS: TOT PROT 6.7 g/dl (6.4-8.2)
[2021-10-04 07:27] LABS: CHOLESTEROL 294 mg/dL (50-200); TRIGLYCERIDES 257 mg/dL (0-150)
[2021-10-04 07:28] LABS: BILIRUBIN,TOTAL 0.4 mg/dL (0.2-1); LDL CHOLESTEROL (ONLY SJRH) 200 mg/dL (5-100)
[2021-10-04 07:29] LABS: ALK PHOS 109 U/L (45-117)
[2021-10-04 07:30] LABS: HDL CHOLESTEROL 52 mg/dL (40-60)
[2021-10-04] MEDS ORDERED: VANCOMYCIN/WATER FOR INJ (PEG) 1,000 MG/200 ML BAG IVPB ONE (07:42)
[2021-10-04 07:58] LABS: BASO % 0.3 % (0-2.0); EOS % 0.4 % (0-4.5); HEMATOCRIT 32.2 % (32.4-45.2); HEMOGLOBIN 10.9 GM/dL (10.7-15.3); LYMPH % 17.8 % (8-40); MCHC 33.7 g/dl (32.0-36.0); MONO % 3.2 % (3.8-10.2); NEUT % 78.3 % (42.8-82.8); PLATELET COUNT 413 10^3/uL (134-434); RBC 4.03 M/mm3 (3.60-5.2); RDW 14.8 % (11.6-15.6); WHITE BLOOD COUNT 13.8 K/mm3 (4.0-10.0)
[2021-10-04] MEDS ORDERED: amLODIPine BESYLATE 5 MG TABLET (FP) ONE (08:15)
[2021-10-04] MEDS ORDERED: METOCLOPRAMIDE HCL INJECTION 10 MG/2 ML VIAL ONE (08:26)
[2021-10-04] MEDS ORDERED: METOCLOPRAMIDE HCL INJECTION 10 MG/2 ML VIAL IVPUSH ONE (08:31)
[2021-10-04] MEDS ORDERED: HEPARIN NA (PORCINE) 5,000 UNITS/ML 1ML VIAL IVPUSH PRN ×2 (08:40)
[2021-10-04] MEDS ORDERED: HEPARIN INFUSION - 25,000 UNITS/500 ML INFUS.BAG IVPB SCH (08:45)
[2021-10-04] MEDS ORDERED: NITROGLYCERIN 25MG/D5W 250ML 25 MG/250 ML ML IVPB SCH ×2 (08:45→17:15)
[2021-10-04] MEDS ORDERED: NITROGLYCERIN 25MG/D5W 250ML 25 MG/250 ML ML IVPB ONE (09:19)
[2021-10-04] MEDS ORDERED: HEPARIN INFUSION - 25,000 UNITS/500 ML INFUS.BAG IVPB ONE (09:42)
[2021-10-04] MEDS ORDERED: amLODIPine BESYLATE 5 MG TABLET (FP) PO SCH (10:00)
[2021-10-04] MEDS ORDERED: ASPIRIN 81 MG CHEWABLE TABLETS PO SCH (10:00)
[2021-10-04] MEDS ORDERED: LACOSAMIDE 50 MG TABLET PO ONE ×2 (10:02→21:19)
[2021-10-04] MEDS ORDERED: DIVALPROEX SODIUM 500 MG TABLET E.C. ONE ×2 (10:02→21:19)
[2021-10-04] MEDS: DIVALPROEX SODIUM 500 MG TABLET E.C. PO SCH ×2 (10:32→21:34)
[2021-10-04] MEDS: LACOSAMIDE 50 MG TABLET PO SCH ×2 (10:33→21:35)
[2021-10-04 11:27] LABS: BASO % 0.4 % (0-2.0); EOS % 0.4 % (0-4.5); LYMPH % 13.3 % (8-40); MCH 27.1 pg (25.7-33.7); MCHC 33.4 g/dl (32.0-36.0); MEAN CELL VOLUME 81.1 fl (80-96); MEAN PLT VOLUME 8.2 fl (7.5-11.1); MONO % 3.9 % (3.8-10.2); PLATELET COUNT 405 10^3/uL (134-434); RBC 4.07 M/mm3 (3.60-5.2); RDW 14.8 % (11.6-15.6); WHITE BLOOD COUNT 12.9 K/mm3 (4.0-10.0)
[2021-10-04] MEDS ORDERED: amLODIPine BESYLATE 5 MG TABLET (FP) PO ONE (12:15)
[2021-10-04] MEDS ORDERED: metoPROLOL SUCCINATE 25 MG TAB.SR.24H (FP) PO ONE (12:30)
[2021-10-04] MEDS: CEFTRIAXONE 1 GM in DEXTROSE 5%-WATER - 50 ML IVPB SCH (13:40)
[2021-10-04] MEDS ORDERED: PANTOPRAZOLE SODIUM 40 MG VIAL ONE (13:40)
[2021-10-04] MEDS: PANTOPRAZOLE SODIUM 40 MG VIAL IVPUSH SCH (13:40)
[2021-10-04] MEDS ORDERED: CEFTRIAXONE 1 GM/50 ML BAG ONE (13:40)
[2021-10-04] MEDS ORDERED: HEPARIN NA (PORCINE) 5,000 UNITS/ML 1ML VIAL ONE (17:53)
[2021-10-04] MEDS ORDERED: ATORVASTATIN CA 80 MG TABLET (FP) ONE (21:19)
[2021-10-04] MEDS ORDERED: ATORVASTATIN CA 80 MG TABLET (FP) PO SCH (22:00)
[2021-10-05] MEDS ORDERED: HEPARIN NA (PORCINE) 5,000 UNITS/ML 1ML VIAL IVPUSH PRN ×2 (00:44)
[2021-10-05] MEDS ORDERED: HEPARIN INFUSION - 25,000 UNITS/500 ML INFUS.BAG IVPB SCH (00:44)
[2021-10-05 01:57] VITALS: BMI 24.0
[2021-10-05 08:31] LABS: CHLORIDE 109 mmol/L (98-107); SODIUM 142 mmol/L (136-145)
[2021-10-05 08:33] LABS: CALCIUM 8.4 mg/dL (8.5-10.1)
[2021-10-05 08:34] LABS: ALBUMIN 2.1 g/dl (3.4-5.0); ANION GAP 10 MMOL/L (8-16); BLOOD UREA NITROGEN 35.7 mg/dL (7-18); CO2 23 mmol/L (21-32); GLUCOSE,RANDOM 220 mg/dL (74-106)
[2021-10-05 08:37] LABS: CREATININE 2.4 mg/dL (0.55-1.3); SGOT/AST 19 U/L (15-37); SGPT/ALT 10 U/L (13-61)
[2021-10-05 08:39] LABS: BILIRUBIN,TOTAL 0.2 mg/dL (0.2-1); TOT PROT 5.8 g/dl (6.4-8.2)
[2021-10-05 08:40] LABS: ALK PHOS 89 U/L (45-117)
[2021-10-05] MEDS ORDERED: amLODIPine BESYLATE 10 MG TABLET (FP) PO SCH (10:00)
[2021-10-05] MEDS ORDERED: metoPROLOL SUCCINATE 25 MG TAB.SR.24H (FP) PO ONE (10:13)
[2021-10-05] MEDS ORDERED: cefTRIAXone SODIUM 1 GM VIAL ONE (10:14)
[2021-10-05] MEDS ORDERED: DEXTROSE 5%-WATER - 50 ML IVPB ONE (10:14)
[2021-10-05] MEDS: DIVALPROEX SODIUM 500 MG TABLET E.C. PO SCH ×2 (10:30→21:13)
[2021-10-05] MEDS: METOPROLOL SUCCINATE 50 MG, METOPROLOL SUCCINATE 25 MG PO SCH (10:30)
[2021-10-05] MEDS: amLODIPine BESYLATE 5 MG TABLET (FP) PO SCH (10:30)
[2021-10-05] MEDS: ASPIRIN 81 MG CHEWABLE TABLETS PO SCH (10:30)
[2021-10-05] MEDS: CEFTRIAXONE 1 GM in DEXTROSE 5%-WATER - 50 ML IVPB SCH (10:30)
[2021-10-05] MEDS: LACOSAMIDE 50 MG TABLET PO SCH ×2 (10:30→21:13)
[2021-10-05] MEDS: PANTOPRAZOLE SODIUM 40 MG VIAL IVPUSH SCH (11:00)
[2021-10-05] MEDS: INSULIN (NOVOLOG) ASPART 100 UNITS/ML 10ML VIAL SQ SCH ×2 (16:56→21:22)
[2021-10-05] MEDS: ATORVASTATIN CA 80 MG TABLET (FP) PO SCH (21:13)
[2021-10-06] MEDS: INSULIN (NOVOLOG) ASPART 100 UNITS/ML 10ML VIAL SQ SCH ×4 (06:21→21:49)
[2021-10-06] MEDS ORDERED: metoPROLOL SUCCINATE 25 MG TAB.SR.24H (FP) PO ONE (08:35)
[2021-10-06 08:36] LABS: BASO % 0.6 % (0-2.0); EOS % 3.6 % (0-4.5); HEMATOCRIT 30.5 % (32.4-45.2); HEMOGLOBIN 10.2 GM/dL (10.7-15.3); LYMPH % 19.2 % (8-40); MCH 27.4 pg (25.7-33.7); MCHC 33.5 g/dl (32.0-36.0); MEAN CELL VOLUME 81.7 fl (80-96); MEAN PLT VOLUME 8.3 fl (7.5-11.1); MONO % 5.2 % (3.8-10.2); NEUT % 71.4 % (42.8-82.8); PLATELET COUNT 385 10^3/uL (134-434); RBC 3.74 M/mm3 (3.60-5.2); RDW 14.8 % (11.6-15.6); WHITE BLOOD COUNT 9.1 K/mm3 (4.0-10.0)
[2021-10-06] MEDS ORDERED: cefTRIAXone SODIUM 1 GM VIAL ONE (08:36)
[2021-10-06] MEDS ORDERED: DEXTROSE 5%-WATER - 50 ML IVPB ONE (08:36)
[2021-10-06 08:44] LABS: CALCIUM 8.7 mg/dL (8.5-10.1)
[2021-10-06 08:45] LABS: ALBUMIN 2.3 g/dl (3.4-5.0); BLOOD UREA NITROGEN 34.3 mg/dL (7-18)
[2021-10-06 08:47] LABS: BILIRUBIN,TOTAL 0.3 mg/dL (0.2-1); CREATININE 2.4 mg/dL (0.55-1.3); TOT PROT 6.2 g/dl (6.4-8.2)
[2021-10-06] MEDS: ASPIRIN 81 MG CHEWABLE TABLETS PO SCH (09:07)
[2021-10-06] MEDS: DIVALPROEX SODIUM 500 MG TABLET E.C. PO SCH ×2 (09:07→21:46)
[2021-10-06] MEDS: amLODIPine BESYLATE 5 MG TABLET (FP) PO SCH (09:08)
[2021-10-06] MEDS: PANTOPRAZOLE SODIUM 40 MG VIAL IVPUSH SCH (09:08)
[2021-10-06] MEDS: LACOSAMIDE 50 MG TABLET PO SCH ×2 (09:08→21:46)
[2021-10-06] MEDS: METOPROLOL SUCCINATE 50 MG, METOPROLOL SUCCINATE 25 MG PO SCH (09:08)
[2021-10-06] MEDS: CEFTRIAXONE 1 GM in DEXTROSE 5%-WATER - 50 ML IVPB SCH (12:03)
[2021-10-06] MEDS: BUDESONIDE/FORMETEROL FUMARATE 160/4.5 mcg INHALER IH SCH ×2 (12:03→21:45)
[2021-10-06] MEDS: FUROSEMIDE 40 MG/4 ML INJECTABLE VIAL IVPUSH SCH (15:08)
[2021-10-06] MEDS: ATORVASTATIN CA 80 MG TABLET (FP) PO SCH ×2 (21:46→21:54)
[2021-10-07] MEDS: FUROSEMIDE 40 MG/4 ML INJECTABLE VIAL IVPUSH SCH (06:31)
[2021-10-07] MEDS: INSULIN (NOVOLOG) ASPART 100 UNITS/ML 10ML VIAL SQ SCH ×4 (06:32→21:11)
[2021-10-07] MEDS ORDERED: metoPROLOL SUCCINATE 25 MG TAB.SR.24H (FP) PO ONE (08:57)
[2021-10-07 09:06] LABS: BLOOD UREA NITROGEN 39.4 mg/dL (7-18)
[2021-10-07 09:14] LABS: CREATININE 2.5 mg/dL (0.55-1.3)
[2021-10-07] MEDS: LACOSAMIDE 50 MG TABLET PO SCH ×2 (09:37→21:11)
[2021-10-07] MEDS: METOPROLOL SUCCINATE 50 MG, METOPROLOL SUCCINATE 25 MG PO SCH (09:37)
[2021-10-07] MEDS: DIVALPROEX SODIUM 500 MG TABLET E.C. PO SCH ×3 (09:37→23:11)
[2021-10-07] MEDS: PANTOPRAZOLE SODIUM 40 MG VIAL IVPUSH SCH (09:37)
[2021-10-07] MEDS: amLODIPine BESYLATE 5 MG TABLET (FP) PO SCH (09:37)
[2021-10-07 09:46] LABS: BASO % 0.4 % (0-2.0); EOS % 3.3 % (0-4.5); HEMATOCRIT 30.9 % (32.4-45.2); HEMOGLOBIN 10.2 GM/dL (10.7-15.3); MCH 27.2 pg (25.7-33.7); MEAN CELL VOLUME 82.3 fl (80-96); MEAN PLT VOLUME 8.3 fl (7.5-11.1); MONO % 5.2 % (3.8-10.2); NEUT % 71.1 % (42.8-82.8); PLATELET COUNT 333 10^3/uL (134-434); RBC 3.76 M/mm3 (3.60-5.2); RDW 14.7 % (11.6-15.6); WHITE BLOOD COUNT 8.4 K/mm3 (4.0-10.0)
[2021-10-07] MEDS: BUDESONIDE/FORMETEROL FUMARATE 160/4.5 mcg INHALER IH SCH ×2 (10:21→21:11)
[2021-10-07] MEDS ORDERED: ONDANSETRON 4 MG/2 ML VIAL IVPB PRN (16:42)
[2021-10-07] MEDS: ATORVASTATIN CA 80 MG TABLET (FP) PO SCH ×2 (21:11→21:21)
[2021-10-08] MEDS: INSULIN (NOVOLOG) ASPART 100 UNITS/ML 10ML VIAL SQ SCH ×4 (06:09→21:20)
[2021-10-08 08:16] LABS: HEMATOCRIT 32.9 % (32.4-45.2); HEMOGLOBIN 11.1 GM/dL (10.7-15.3); MCH 27.4 pg (25.7-33.7); MCHC 33.7 g/dl (32.0-36.0); MEAN CELL VOLUME 81.2 fl (80-96); MEAN PLT VOLUME 8.1 fl (7.5-11.1); PLATELET COUNT 346 10^3/uL (134-434); RBC 4.05 M/mm3 (3.60-5.2); RDW 14.6 % (11.6-15.6); WHITE BLOOD COUNT 8.2 K/mm3 (4.0-10.0)
[2021-10-08 08:31] LABS: ALBUMIN 2.2 g/dl (3.4-5.0); BLOOD UREA NITROGEN 38.3 mg/dL (7-18); CALCIUM 8.3 mg/dL (8.5-10.1)
[2021-10-08] MEDS ORDERED: metoPROLOL SUCCINATE 25 MG TAB.SR.24H (FP) PO ONE (08:32)
[2021-10-08 08:34] LABS: CREATININE 2.7 mg/dL (0.55-1.3)
[2021-10-08 08:36] LABS: BILIRUBIN,TOTAL 0.2 mg/dL (0.2-1); TOT PROT 6.1 g/dl (6.4-8.2)
[2021-10-08] MEDS: LACOSAMIDE 50 MG TABLET PO SCH ×2 (09:10→21:19)
[2021-10-08] MEDS: METOPROLOL SUCCINATE 50 MG, METOPROLOL SUCCINATE 25 MG PO SCH (09:10)
[2021-10-08] MEDS: DIVALPROEX SODIUM 125 MG SPRINKLE CAPS PO SCH ×2 (09:10→21:20)
[2021-10-08] MEDS: amLODIPine BESYLATE 5 MG TABLET (FP) PO SCH (09:10)
[2021-10-08] MEDS: FUROSEMIDE 40 MG/4 ML INJECTABLE VIAL IVPUSH SCH (09:10)
[2021-10-08] MEDS: PANTOPRAZOLE SODIUM 40 MG VIAL IVPUSH SCH (09:10)
[2021-10-08] MEDS: BUDESONIDE/FORMETEROL FUMARATE 160/4.5 mcg INHALER IH SCH ×2 (09:11→21:20)
[2021-10-08] MEDS: ATORVASTATIN CA 80 MG TABLET (FP) PO SCH (21:20)
[2021-10-09] MEDS: INSULIN (NOVOLOG) ASPART 100 UNITS/ML 10ML VIAL SQ SCH ×4 (06:33→21:39)
[2021-10-09 08:06] LABS: HEMOGLOBIN 11.8 GM/dL (10.7-15.3); MCH 27.3 pg (25.7-33.7); MCHC 32.9 g/dl (32.0-36.0); MEAN CELL VOLUME 82.8 fl (80-96); MEAN PLT VOLUME 8.1 fl (7.5-11.1); PLATELET COUNT 374 10^3/uL (134-434); RBC 4.35 M/mm3 (3.60-5.2); RDW 14.8 % (11.6-15.6); WHITE BLOOD COUNT 8.8 K/mm3 (4.0-10.0)
[2021-10-09 08:51] LABS: BLOOD UREA NITROGEN 43.1 mg/dL (7-18)
[2021-10-09 08:54] LABS: CREATININE 2.7 mg/dL (0.55-1.3)
[2021-10-09] MEDS ORDERED: metoPROLOL SUCCINATE 25 MG TAB.SR.24H (FP) PO ONE (08:57)
[2021-10-09] MEDS: METOPROLOL SUCCINATE 50 MG, METOPROLOL SUCCINATE 25 MG PO SCH (09:59)
[2021-10-09] MEDS: amLODIPine BESYLATE 5 MG TABLET (FP) PO SCH (09:59)
[2021-10-09] MEDS: PANTOPRAZOLE SODIUM 40 MG VIAL IVPUSH SCH (10:00)
[2021-10-09] MEDS: FUROSEMIDE 40 MG/4 ML INJECTABLE VIAL IVPUSH SCH (10:00)
[2021-10-09] MEDS: LACOSAMIDE 50 MG TABLET PO SCH ×2 (10:00→21:30)
[2021-10-09] MEDS: DIVALPROEX SODIUM 125 MG SPRINKLE CAPS PO SCH ×2 (10:01→22:54)
[2021-10-09] MEDS: BUDESONIDE/FORMETEROL FUMARATE 160/4.5 mcg INHALER IH SCH ×2 (11:13→21:31)
[2021-10-09] MEDS: ATORVASTATIN CA 80 MG TABLET (FP) PO SCH (21:32)
[2021-10-10 02:12] VITALS: RESP 18
[2021-10-10] MEDS: INSULIN (NOVOLOG) ASPART 100 UNITS/ML 10ML VIAL SQ SCH ×2 (06:13→12:47)
[2021-10-10 08:30] LABS: HEMOGLOBIN 11.2 GM/dL (10.7-15.3); MCH 27.4 pg (25.7-33.7); MCHC 33.9 g/dl (32.0-36.0); MEAN CELL VOLUME 80.9 fl (80-96); MEAN PLT VOLUME 7.9 fl (7.5-11.1); PLATELET COUNT 336 10^3/uL (134-434); RBC 4.07 M/mm3 (3.60-5.2); RDW 14.4 % (11.6-15.6); WHITE BLOOD COUNT 7.6 K/mm3 (4.0-10.0)
[2021-10-10] MEDS ORDERED: metoPROLOL SUCCINATE 25 MG TAB.SR.24H (FP) PO ONE (09:50)
[2021-10-10] MEDS: METOPROLOL SUCCINATE 50 MG, METOPROLOL SUCCINATE 25 MG PO SCH (10:03)
[2021-10-10] MEDS: amLODIPine BESYLATE 5 MG TABLET (FP) PO SCH (10:04)
[2021-10-10] MEDS: LACOSAMIDE 50 MG TABLET PO SCH (10:04)
[2021-10-10] MEDS: FUROSEMIDE 40 MG/4 ML INJECTABLE VIAL IVPUSH SCH (10:05)
[2021-10-10] MEDS: PANTOPRAZOLE SODIUM 40 MG VIAL IVPUSH SCH (10:05)
[2021-10-10] MEDS: DIVALPROEX SODIUM 125 MG SPRINKLE CAPS PO SCH (10:05)
[2021-10-10 10:39] VITALS: PULSE 80
[2021-10-10] MEDS: BUDESONIDE/FORMETEROL FUMARATE 160/4.5 mcg INHALER IH SCH (12:46)
[2021-10-10 14:38] VITALS: BP 146/73; TEMP 98.1
[2021-10-11] MEDS ORDERED: FUROSEMIDE 40 MG TABLET (FP) PO SCH (10:00)
[2021-10-11] MEDS ORDERED: PANTOPRAZOLE 40 MG TABLET PO SCH (10:00)
== END 2021-10-10 14:50 | disposition home or self-care (01) | DRG 280 ==
LOC: JER 18:00 → JERBED 10-04 02:20 → J4S 10-05 01:59
PROVIDERS: ADMIT Internal Medicine; ATTEND Family Medicine
DX: I21.4 Non-ST elevation (NSTEMI) myocardial infarction (principal); G93.41 Metabolic encephalopathy; E87.2 Acidosis; I13.0 Hypertensive heart and chronic kidney disease with heart failure and stage 1 through stage 4 chronic kidney disease, or unspecified chronic kidney disease; N17.9 Acute kidney failure, unspecified; I50.32 Chronic diastolic (congestive) heart failure; T38.3X5A Adverse effect of insulin and oral hypoglycemic [antidiabetic] drugs, initial encounter; I25.10 Atherosclerotic heart disease of native coronary artery without angina pectoris; F03.90 Unspecified dementia, unspecified severity, without behavioral disturbance, psychotic disturbance, mood disturbance, and anxiety; E78.5 Hyperlipidemia, unspecified; R41.82 Altered mental status, unspecified; E11.649 Type 2 diabetes mellitus with hypoglycemia without coma; R77.8 Other specified abnormalities of plasma proteins; J44.9 Chronic obstructive pulmonary disease, unspecified; E87.6 Hypokalemia; E11.22 Type 2 diabetes mellitus with diabetic chronic kidney disease; N18.9 Chronic kidney disease, unspecified; E86.0 Dehydration; D72.829 Elevated white blood cell count, unspecified; Z95.1 Presence of aortocoronary bypass graft; Z95.5 Presence of coronary angioplasty implant and graft; Z86.73 Personal history of transient ischemic attack (TIA), and cerebral infarction without residual deficits
CPT/HCPCS: 0241U-QW; 36415; 70450-TC; 71045-TC-FY; 71250-TC; 80048; 80053; 80061; 80164; 81003; 82550; 82553; 82803; 82962; 83605; 83735; 84484; 85025; 85027; 85610; 85730; 86850; 86900; 86901; 87040; 87086; 87899; 93005; 93010; 93306-TC; 94761; 97116-GP; 97161-GP; 99285-25; C9803-CS; J1644; U0003; U0005

== ENCOUNTER 2022-04-03 14:50 | Inpatient (IN) | payer OTHER ==
[2022-04-03] MEDS ORDERED: FUROSEMIDE 40 MG/4 ML INJECTABLE VIAL IVPUSH ONE (16:29)
[2022-04-03] MEDS ORDERED: FUROSEMIDE 40 MG/4 ML INJECTABLE VIAL ONE (16:35)
[2022-04-03 17:13] LABS: HEMATOCRIT 33.6 % (32.4-45.2); MCH 26.2 pg (25.7-33.7); MCHC 32.8 g/dl (32.0-36.0); MEAN CELL VOLUME 79.8 fl (80-96); MEAN PLT VOLUME 7.4 fl (7.5-11.1); PLATELET COUNT 469 10^3/uL (134-434); RBC 4.22 M/mm3 (3.60-5.2); WHITE BLOOD COUNT 8.9 K/mm3 (4.0-10.0)
[2022-04-03 17:30] LABS: CHLORIDE 106 mmol/L (98-107); SODIUM 137 mmol/L (136-145)
[2022-04-03 17:32] LABS: CALCIUM 9.1 mg/dL (8.5-10.1)
[2022-04-03 17:33] LABS: ALBUMIN 3.2 g/dl (3.4-5.0); ANION GAP 7 MMOL/L (8-16); BLOOD UREA NITROGEN 62.7 mg/dL (7-18); CO2 24 mmol/L (21-32); GLUCOSE,RANDOM 85 mg/dL (74-106)
[2022-04-03 17:36] LABS: CREATININE 2.8 mg/dL (0.55-1.3); SGOT/AST 22 U/L (15-37); SGPT/ALT 26 U/L (13-61)
[2022-04-03 17:37] LABS: BILIRUBIN,TOTAL 0.3 mg/dL (0.2-1); TOT PROT 7.6 g/dl (6.4-8.2)
[2022-04-03 17:39] LABS: ALK PHOS 157 U/L (45-117)
[2022-04-03 17:54] LABS: N-TERMINAL BNP 99687.7 pg/ml (5-125)
[2022-04-04] MEDS ORDERED: DIVALPROEX SODIUM 500 MG TABLET E.C. ONE (00:29)
[2022-04-04] MEDS: DIVALPROEX NA *ER* EXTEND REL 500 MG TABLET.SA (FP) PO SCH ×4 (00:39→22:16)
[2022-04-04] MEDS: LACOSAMIDE 50 MG TABLET PO SCH ×3 (00:39→21:52)
[2022-04-04 08:39] LABS: BASO % 0.7 % (0-2.0); EOS % 3.3 % (0-4.5); HEMATOCRIT 30.9 % (32.4-45.2); HEMOGLOBIN 10.3 GM/dL (10.7-15.3); LYMPH % 23.6 % (8-40); MCH 26.5 pg (25.7-33.7); MCHC 33.2 g/dl (32.0-36.0); MEAN CELL VOLUME 79.8 fl (80-96); MEAN PLT VOLUME 7.7 fl (7.5-11.1); MONO % 5.5 % (3.8-10.2); NEUT % 66.9 % (42.8-82.8); PLATELET COUNT 384 10^3/uL (134-434); RBC 3.87 M/mm3 (3.60-5.2); RDW 16.9 % (11.6-15.6)
[2022-04-04] MEDS: metoPROLOL SUCCINATE 25 MG TAB.SR.24H (FP) PO SCH (09:23)
[2022-04-04] MEDS: amLODIPine BESYLATE 5 MG TABLET (FP) PO SCH (09:23)
[2022-04-04] MEDS: ASPIRIN 81 MG CHEWABLE TABLETS PO SCH (09:23)
[2022-04-04 09:38] LABS: ALBUMIN 2.8 g/dl (3.4-5.0); BLOOD UREA NITROGEN 60.3 mg/dL (7-18); CALCIUM 8.7 mg/dL (8.5-10.1)
[2022-04-04 09:41] LABS: CREATININE 2.7 mg/dL (0.55-1.3)
[2022-04-04 09:43] LABS: BILIRUBIN,TOTAL 0.4 mg/dL (0.2-1); TOT PROT 6.4 g/dl (6.4-8.2)
[2022-04-04] MEDS ORDERED: FUROSEMIDE 40 MG TABLET (FP) PO SCH ×2 (10:00)
[2022-04-04] MEDS ORDERED: ONDANSETRON 4 MG/2 ML VIAL IVPUSH PRN (11:52)
[2022-04-04] MEDS: BUDESONIDE/FORMETEROL FUMARATE 160/4.5 mcg INHALER IH SCH ×3 (12:10→21:55)
[2022-04-04] MEDS: PANTOPRAZOLE SODIUM 40 MG VIAL IVPUSH SCH (12:11)
[2022-04-04] MEDS: ATORVASTATIN CA 80 MG TABLET (FP) PO SCH ×2 (21:55→22:16)
[2022-04-04 23:57] LABS: IRON SERUM 26 ug/dL (50-175)
[2022-04-04 23:58] LABS: TOTAL IRON BINDING CAPACITY 320 ug/dL (250-450)
[2022-04-05 07:52] LABS: BASO % 0.4 % (0-2.0); EOS % 3.5 % (0-4.5); HEMOGLOBIN 10.2 GM/dL (10.7-15.3); LYMPH % 23.6 % (8-40); MCH 26.4 pg (25.7-33.7); MEAN CELL VOLUME 79.9 fl (80-96); MEAN PLT VOLUME 7.4 fl (7.5-11.1); MONO % 5.5 % (3.8-10.2); PLATELET COUNT 377 10^3/uL (134-434); RBC 3.87 M/mm3 (3.60-5.2); RDW 17.1 % (11.6-15.6); WHITE BLOOD COUNT 6.5 K/mm3 (4.0-10.0)
[2022-04-05 08:38] LABS: ALBUMIN 2.7 g/dl (3.4-5.0); BLOOD UREA NITROGEN 64.1 mg/dL (7-18); CALCIUM 8.9 mg/dL (8.5-10.1)
[2022-04-05 08:41] LABS: CREATININE 3.1 mg/dL (0.55-1.3)
[2022-04-05 08:43] LABS: BILIRUBIN,TOTAL 0.4 mg/dL (0.2-1); TOT PROT 6.4 g/dl (6.4-8.2)
[2022-04-05] MEDS ORDERED: FUROSEMIDE 40 MG TABLET (FP) PO SCH (09:10)
[2022-04-05] MEDS: amLODIPine BESYLATE 5 MG TABLET (FP) PO SCH (10:22)
[2022-04-05] MEDS: metoPROLOL SUCCINATE 25 MG TAB.SR.24H (FP) PO SCH (10:22)
[2022-04-05] MEDS: ASPIRIN 81 MG CHEWABLE TABLETS PO SCH (10:22)
[2022-04-05] MEDS: LACOSAMIDE 50 MG TABLET PO SCH ×2 (10:22→22:35)
[2022-04-05] MEDS: BUDESONIDE/FORMETEROL FUMARATE 160/4.5 mcg INHALER IH SCH ×2 (10:23→22:36)
[2022-04-05] MEDS: PANTOPRAZOLE SODIUM 40 MG VIAL IVPUSH SCH (10:23)
[2022-04-05] MEDS ORDERED: IRON SUCROSE INJECTION 200 MG in SODIUM CHLORIDE 90 ML IVPB ONE (11:00)
[2022-04-05] MEDS: DIVALPROEX NA *ER* EXTEND REL 500 MG TABLET.SA (FP) PO SCH ×2 (11:20→22:36)
[2022-04-05] MEDS ORDERED: FUROSEMIDE 40 MG/4 ML INJECTABLE VIAL IVPUSH ONE (14:29)
[2022-04-05] MEDS: ATORVASTATIN CA 80 MG TABLET (FP) PO SCH (22:36)
[2022-04-06] MEDS ORDERED: IRON SUCROSE INJECTION 200 MG in SODIUM CHLORIDE 90 ML IVPB ONE (11:00)
[2022-04-06] MEDS: ASPIRIN 81 MG CHEWABLE TABLETS PO SCH (11:23)
[2022-04-06] MEDS: LACOSAMIDE 50 MG TABLET PO SCH ×2 (11:24→23:00)
[2022-04-06] MEDS: TORSEMIDE 20 MG TABLET (FP) PO SCH (11:24)
[2022-04-06] MEDS: BUDESONIDE/FORMETEROL FUMARATE 160/4.5 mcg INHALER IH SCH ×2 (11:24→23:00)
[2022-04-06] MEDS: PANTOPRAZOLE SODIUM 40 MG VIAL IVPUSH SCH (11:25)
[2022-04-06] MEDS: DIVALPROEX NA *ER* EXTEND REL 500 MG TABLET.SA (FP) PO SCH ×2 (11:25→23:00)
[2022-04-06 11:45] LABS: HEMATOCRIT 31.5 % (32.4-45.2); HEMOGLOBIN 10.2 GM/dL (10.7-15.3); MCH 25.8 pg (25.7-33.7); MCHC 32.4 g/dl (32.0-36.0); MEAN CELL VOLUME 79.7 fl (80-96); MEAN PLT VOLUME 7.3 fl (7.5-11.1); PLATELET COUNT 390 10^3/uL (134-434); RBC 3.95 M/mm3 (3.60-5.2); RDW 17.2 % (11.6-15.6); WHITE BLOOD COUNT 6.4 K/mm3 (4.0-10.0)
[2022-04-06 11:49] LABS: INR 1.11 (0.83-1.09); PROTHROMBIN TIME (PATIENT) 12.8 SEC (9.7-13.0)
[2022-04-06 12:34] LABS: CALCIUM 8.7 mg/dL (8.5-10.1)
[2022-04-06 12:35] LABS: BLOOD UREA NITROGEN 68.2 mg/dL (7-18)
[2022-04-06 12:41] LABS: CREATININE 3.4 mg/dL (0.55-1.3)
[2022-04-06] MEDS: metoPROLOL SUCCINATE 25 MG TAB.SR.24H (FP) PO SCH (13:27)
[2022-04-06] MEDS: amLODIPine BESYLATE 5 MG TABLET (FP) PO SCH (13:27)
[2022-04-06] MEDS: ATORVASTATIN CA 80 MG TABLET (FP) PO SCH ×2 (23:00→23:34)
[2022-04-07] MEDS: ONDANSETRON 4 MG/2 ML VIAL IVPUSH PRN (04:30)
[2022-04-07] MEDS: BUDESONIDE/FORMETEROL FUMARATE 160/4.5 mcg INHALER IH SCH ×2 (10:26→22:11)
[2022-04-07] MEDS: LACOSAMIDE 50 MG TABLET PO SCH ×2 (10:26→22:10)
[2022-04-07] MEDS: DIVALPROEX NA *ER* EXTEND REL 500 MG TABLET.SA (FP) PO SCH ×2 (10:26→22:10)
[2022-04-07] MEDS: ASPIRIN 81 MG CHEWABLE TABLETS PO SCH (10:26)
[2022-04-07] MEDS: PANTOPRAZOLE SODIUM 40 MG VIAL IVPUSH SCH (10:26)
[2022-04-07] MEDS: amLODIPine BESYLATE 5 MG TABLET (FP) PO SCH (10:26)
[2022-04-07] MEDS: metoPROLOL SUCCINATE 25 MG TAB.SR.24H (FP) PO SCH (10:26)
[2022-04-07] MEDS: TORSEMIDE 20 MG TABLET (FP) PO SCH (10:27)
[2022-04-07] MEDS: IRON SUCROSE INJECTION 200 MG in SODIUM CHLORIDE 90 ML IVPB ONE ×2 (13:19→13:54)
[2022-04-07] MEDS: ATORVASTATIN CA 80 MG TABLET (FP) PO SCH ×2 (22:10→22:27)
[2022-04-08] MEDS: metoPROLOL SUCCINATE 25 MG TAB.SR.24H (FP) PO SCH (10:12)
[2022-04-08] MEDS: amLODIPine BESYLATE 5 MG TABLET (FP) PO SCH (10:13)
[2022-04-08] MEDS: ASPIRIN 81 MG CHEWABLE TABLETS PO SCH (10:13)
[2022-04-08] MEDS: LACOSAMIDE 50 MG TABLET PO SCH ×2 (10:13→22:11)
[2022-04-08] MEDS: TORSEMIDE 20 MG TABLET (FP) PO SCH (10:14)
[2022-04-08] MEDS: DIVALPROEX NA *ER* EXTEND REL 500 MG TABLET.SA (FP) PO SCH ×4 (10:14→22:48)
[2022-04-08] MEDS: PANTOPRAZOLE SODIUM 40 MG VIAL IVPUSH SCH (10:15)
[2022-04-08] MEDS: BUDESONIDE/FORMETEROL FUMARATE 160/4.5 mcg INHALER IH SCH ×2 (10:59→22:11)
[2022-04-08 12:56] LABS: CALCIUM 8.7 mg/dL (8.5-10.1)
[2022-04-08 12:57] LABS: BLOOD UREA NITROGEN 74.3 mg/dL (7-18)
[2022-04-08 13:00] LABS: CREATININE 4.4 mg/dL (0.55-1.3)
[2022-04-08] MEDS: ONDANSETRON 4 MG/2 ML VIAL IVPUSH PRN (13:50)
[2022-04-08] MEDS ORDERED: hydrALAZINE HCL 20 MG/ML VIAL IVPB ONE (21:50)
[2022-04-08] MEDS: ATORVASTATIN CA 80 MG TABLET (FP) PO SCH (22:11)
[2022-04-09] MEDS ORDERED: hydrALAZINE HCL 20 MG/ML VIAL IVPB ONE (03:43)
[2022-04-09] MEDS: ASPIRIN 81 MG CHEWABLE TABLETS PO SCH (11:15)
[2022-04-09] MEDS: hydrALAZINE HCL 25 MG TABLET (FP) PO SCH ×3 (11:15→21:16)
[2022-04-09] MEDS: amLODIPine BESYLATE 5 MG TABLET (FP) PO SCH (11:16)
[2022-04-09] MEDS: BUDESONIDE/FORMETEROL FUMARATE 160/4.5 mcg INHALER IH SCH ×2 (11:16→21:17)
[2022-04-09] MEDS: metoPROLOL SUCCINATE 25 MG TAB.SR.24H (FP) PO SCH (11:16)
[2022-04-09] MEDS: LACOSAMIDE 50 MG TABLET PO SCH ×2 (11:21→21:16)
[2022-04-09] MEDS: PANTOPRAZOLE SODIUM 40 MG VIAL IVPUSH SCH (11:21)
[2022-04-09] MEDS: DIVALPROEX SODIUM 500 MG TABLET E.C. PO SCH ×3 (11:23→22:51)
[2022-04-09] MEDS: TORSEMIDE 20 MG TABLET (FP) PO SCH (11:35)
[2022-04-09] MEDS: DIVALPROEX NA *ER* EXTEND REL 500 MG TABLET.SA (FP) PO SCH (11:36)
[2022-04-09 11:58] LABS: CALCIUM 8.7 mg/dL (8.5-10.1)
[2022-04-09 11:59] LABS: ALBUMIN 2.7 g/dl (3.4-5.0); BLOOD UREA NITROGEN 78.4 mg/dL (7-18)
[2022-04-09 12:02] LABS: CREATININE 4.7 mg/dL (0.55-1.3)
[2022-04-09 12:04] LABS: TOT PROT 6.4 g/dl (6.4-8.2)
[2022-04-09 12:04] LABS: BASO % 0.4 % (0-2.0); EOS % 2.1 % (0-4.5); HEMATOCRIT 31.7 % (32.4-45.2); HEMOGLOBIN 10.5 GM/dL (10.7-15.3); LYMPH % 11.7 % (8-40); MCH 26.9 pg (25.7-33.7); MCHC 33.1 g/dl (32.0-36.0); MEAN CELL VOLUME 81.2 fl (80-96); MEAN PLT VOLUME 7.7 fl (7.5-11.1); MONO % 5.7 % (3.8-10.2); NEUT % 80.1 % (42.8-82.8); PLATELET COUNT 380 10^3/uL (134-434); RBC 3.91 M/mm3 (3.60-5.2); RDW 17.5 % (11.6-15.6)
[2022-04-09 12:13] LABS: BILIRUBIN,TOTAL 0.3 mg/dL (0.2-1)
[2022-04-09] MEDS ORDERED: amLODIPine BESYLATE 5 MG TABLET (FP) PO ONE (13:00)
[2022-04-09] MEDS: SODIUM ZIRCONIUM CYCLOSILICATE (LOKELMA) 5 GM PACKET PO SCH ×2 (14:50→15:00)
[2022-04-09 16:42] LABS: CALCIUM 8.8 mg/dL (8.5-10.1)
[2022-04-09 16:43] LABS: BLOOD UREA NITROGEN 76.2 mg/dL (7-18)
[2022-04-09 16:45] LABS: CREATININE 4.7 mg/dL (0.55-1.3)
[2022-04-09] MEDS: ATORVASTATIN CA 80 MG TABLET (FP) PO SCH ×2 (21:16→21:32)
[2022-04-10 01:03] LABS: EPI CELLS >36 /uL (0-25.1); HYALINE CASTS 3 /uL (0-3.1); URINE APPEARANCE CLOUDY; URINE BACTERIA 2093 /uL (0-1359); URINE BILIRUBIN NEGATIVE (NEGATIVE); URINE COLOR YELLOW; URINE GLUCOSE (UA) 2+ (NEGATIVE); URINE KETONE NEGATIVE (NEGATIVE); URINE LEUK ESTERASE 2+ (NEGATIVE); URINE NITRITE NEGATIVE (NEGATIVE); URINE PROTEIN 4+ (NEGATIVE); URINE RBC 14 /uL (0-23.9); URINE UROBILINOGEN 0.2 mg/dL (0.2-1.0); URINE WBC 758 /uL (0-25.8)
[2022-04-10] MEDS: hydrALAZINE HCL 25 MG TABLET (FP) PO SCH ×3 (05:05→21:46)
[2022-04-10 10:04] LABS: ALBUMIN 2.9 g/dl (3.4-5.0); CALCIUM 8.9 mg/dL (8.5-10.1)
[2022-04-10 10:07] LABS: CREATININE 5.1 mg/dL (0.55-1.3)
[2022-04-10 10:09] LABS: BILIRUBIN,TOTAL 0.3 mg/dL (0.2-1); TOT PROT 6.9 g/dl (6.4-8.2)
[2022-04-10] MEDS: LACOSAMIDE 50 MG TABLET PO SCH ×2 (11:24→21:46)
[2022-04-10] MEDS: DIVALPROEX SODIUM 500 MG TABLET E.C. PO SCH ×2 (11:24→15:34)
[2022-04-10] MEDS: amLODIPine BESYLATE 10 MG TABLET (FP) PO SCH (11:27)
[2022-04-10] MEDS: ASPIRIN 81 MG CHEWABLE TABLETS PO SCH (11:27)
[2022-04-10] MEDS: SODIUM ZIRCONIUM CYCLOSILICATE (LOKELMA) 5 GM PACKET PO SCH ×2 (11:28→15:26)
[2022-04-10] MEDS: metoPROLOL SUCCINATE 25 MG TAB.SR.24H (FP) PO SCH (11:28)
[2022-04-10] MEDS: INSULIN (NOVOLOG) ASPART 100 UNITS/ML 10ML VIAL SQ SCH ×3 (11:29→21:47)
[2022-04-10] MEDS: PANTOPRAZOLE SODIUM 40 MG VIAL IVPUSH SCH (11:29)
[2022-04-10] MEDS: BUDESONIDE/FORMETEROL FUMARATE 160/4.5 mcg INHALER IH SCH ×2 (11:29→21:47)
[2022-04-10] MEDS ORDERED: FUROSEMIDE 40 MG/4 ML INJECTABLE VIAL IVPUSH ONE (14:15)
[2022-04-10] MEDS: DIVALPROEX SODIUM 250 MG TABLET E.C. PO SCH (21:46)
[2022-04-10] MEDS: ATORVASTATIN CA 80 MG TABLET (FP) PO SCH (21:46)
[2022-04-10] MEDS ORDERED: INSULIN (LEVEMIR) 100 UNITS/ML UNITS SQ SCH (22:00)
[2022-04-11] MEDS: INSULIN (NOVOLOG) ASPART 100 UNITS/ML 10ML VIAL SQ SCH ×4 (06:00→22:07)
[2022-04-11] MEDS: INSULIN (LEVEMIR) 100 UNITS/ML UNITS SQ SCH (06:03)
[2022-04-11] MEDS: hydrALAZINE HCL 25 MG TABLET (FP) PO SCH ×3 (06:03→21:54)
[2022-04-11] MEDS ORDERED: INSULIN (LEVEMIR) 100 UNITS/ML UNITS SQ SCH (07:00)
[2022-04-11] MEDS: LACOSAMIDE 50 MG TABLET PO SCH ×2 (10:12→21:54)
[2022-04-11] MEDS: ASPIRIN 81 MG CHEWABLE TABLETS PO SCH (10:12)
[2022-04-11] MEDS: amLODIPine BESYLATE 10 MG TABLET (FP) PO SCH (10:12)
[2022-04-11] MEDS: metoPROLOL SUCCINATE 25 MG TAB.SR.24H (FP) PO SCH (10:12)
[2022-04-11] MEDS: PANTOPRAZOLE SODIUM 40 MG VIAL IVPUSH SCH (10:13)
[2022-04-11] MEDS: SODIUM ZIRCONIUM CYCLOSILICATE (LOKELMA) 5 GM PACKET PO SCH (10:13)
[2022-04-11] MEDS: DIVALPROEX SODIUM 250 MG TABLET E.C. PO SCH ×2 (10:13→21:54)
[2022-04-11] MEDS: BUDESONIDE/FORMETEROL FUMARATE 160/4.5 mcg INHALER IH SCH ×2 (10:14→22:07)
[2022-04-11] MEDS: ATORVASTATIN CA 80 MG TABLET (FP) PO SCH ×2 (21:54→22:25)
[2022-04-12] MEDS ORDERED: DEXTROSE 50%-WATER 25 GM/50 ML DISP.SYRIN IVPUSH ONE (04:45)
[2022-04-12] MEDS ORDERED: DEXTROSE 50%-WATER 25 GM/50 ML DISP.SYRIN ONE (04:47)
[2022-04-12] MEDS: INSULIN (NOVOLOG) ASPART 100 UNITS/ML 10ML VIAL SQ SCH ×4 (06:10→22:52)
[2022-04-12] MEDS: hydrALAZINE HCL 25 MG TABLET (FP) PO SCH ×3 (06:12→22:51)
[2022-04-12] MEDS: INSULIN (LEVEMIR) 100 UNITS/ML UNITS SQ SCH (09:11)
[2022-04-12 09:47] LABS: ALBUMIN 2.5 g/dl (3.4-5.0); BLOOD UREA NITROGEN 92.6 mg/dL (7-18); CALCIUM 8.3 mg/dL (8.5-10.1)
[2022-04-12 09:51] LABS: TOT PROT 6.1 g/dl (6.4-8.2)
[2022-04-12 10:11] LABS: CREATININE 5.3 mg/dL (0.55-1.3)
[2022-04-12] MEDS: amLODIPine BESYLATE 10 MG TABLET (FP) PO SCH (10:14)
[2022-04-12] MEDS: metoPROLOL SUCCINATE 25 MG TAB.SR.24H (FP) PO SCH ×2 (10:15→11:12)
[2022-04-12] MEDS: LACOSAMIDE 50 MG TABLET PO SCH (10:15)
[2022-04-12] MEDS: ASPIRIN 81 MG CHEWABLE TABLETS PO SCH (10:15)
[2022-04-12] MEDS: PANTOPRAZOLE SODIUM 40 MG VIAL IVPUSH SCH (10:16)
[2022-04-12] MEDS: DIVALPROEX SODIUM 250 MG TABLET E.C. PO SCH ×2 (10:16→22:51)
[2022-04-12 10:17] LABS: BILIRUBIN,TOTAL 0.2 mg/dL (0.2-1)
[2022-04-12] MEDS: BUDESONIDE/FORMETEROL FUMARATE 160/4.5 mcg INHALER IH SCH ×2 (10:17→22:51)
[2022-04-12] MEDS: SODIUM ZIRCONIUM CYCLOSILICATE (LOKELMA) 5 GM PACKET PO SCH (12:13)
[2022-04-12] MEDS: SODIUM CHLORIDE 0.45% 1,000 ML IV SCH (13:53)
[2022-04-12] MEDS ORDERED: SODIUM ZIRCONIUM CYCLOSILICATE (LOKELMA) 5 GM PACKET PO SCH (19:00)
[2022-04-12 21:06] LABS: ATYPICAL pANCA <1:20 titer (Neg:<1:20); C-ANCA <1:20 titer (Neg:<1:20)
[2022-04-12 21:26] LABS: EPI CELLS >36 /uL (0-25.1); HYALINE CASTS 1 /uL (0-3.1); PH,URINE 6.5 (5.0-8.0); URINE APPEARANCE CLOUDY; URINE BACTERIA 2104 /uL (0-1359); URINE BILIRUBIN NEGATIVE (NEGATIVE); URINE COLOR YELLOW; URINE GLUCOSE (UA) 1+ (NEGATIVE); URINE KETONE TRACE (NEGATIVE); URINE LEUK ESTERASE 1+ (NEGATIVE); URINE NITRITE NEGATIVE (NEGATIVE); URINE PROTEIN 4+ (NEGATIVE); URINE RBC 14 /uL (0-23.9); URINE UROBILINOGEN 0.2 mg/dL (0.2-1.0); URINE WBC 164 /uL (0-25.8)
[2022-04-12] MEDS: ATORVASTATIN CA 80 MG TABLET (FP) PO SCH ×2 (22:51→22:59)
[2022-04-12] MEDS: ONDANSETRON 4 MG/2 ML VIAL IVPUSH PRN (23:06)
[2022-04-13] MEDS: SODIUM CHLORIDE 0.45% 1,000 ML IV SCH ×2 (02:49→14:36)
[2022-04-13] MEDS: INSULIN (NOVOLOG) ASPART 100 UNITS/ML 10ML VIAL SQ SCH ×4 (06:53→22:18)
[2022-04-13] MEDS: hydrALAZINE HCL 25 MG TABLET (FP) PO SCH ×3 (06:55→22:05)
[2022-04-13] MEDS: INSULIN (LEVEMIR) 100 UNITS/ML UNITS SQ SCH (09:54)
[2022-04-13] MEDS: metoPROLOL SUCCINATE 25 MG TAB.SR.24H (FP) PO SCH (10:15)
[2022-04-13] MEDS: SODIUM ZIRCONIUM CYCLOSILICATE (LOKELMA) 5 GM PACKET PO SCH (10:16)
[2022-04-13] MEDS: ASPIRIN 81 MG CHEWABLE TABLETS PO SCH (10:16)
[2022-04-13] MEDS: amLODIPine BESYLATE 10 MG TABLET (FP) PO SCH (10:16)
[2022-04-13] MEDS: DIVALPROEX SODIUM 250 MG TABLET E.C. PO SCH ×2 (10:16→23:26)
[2022-04-13] MEDS: PANTOPRAZOLE SODIUM 40 MG VIAL IVPUSH SCH (10:17)
[2022-04-13] MEDS: BUDESONIDE/FORMETEROL FUMARATE 160/4.5 mcg INHALER IH SCH ×2 (10:17→22:06)
[2022-04-13 10:18] LABS: BASO % 0.4 % (0-2.0); EOS % 1.8 % (0-4.5); HEMATOCRIT 29.4 % (32.4-45.2); HEMOGLOBIN 9.5 GM/dL (10.7-15.3); LYMPH % 17.7 % (8-40); MCH 26.6 pg (25.7-33.7); MCHC 32.2 g/dl (32.0-36.0); MEAN CELL VOLUME 82.7 fl (80-96); MEAN PLT VOLUME 7.9 fl (7.5-11.1); MONO % 5.3 % (3.8-10.2); NEUT % 74.8 % (42.8-82.8); PLATELET COUNT 314 10^3/uL (134-434); RBC 3.56 M/mm3 (3.60-5.2); RDW 17.3 % (11.6-15.6); WHITE BLOOD COUNT 6.3 K/mm3 (4.0-10.0)
[2022-04-13 10:50] LABS: CALCIUM 8.2 mg/dL (8.5-10.1)
[2022-04-13 10:51] LABS: ALBUMIN 2.5 g/dl (3.4-5.0); BLOOD UREA NITROGEN 94.6 mg/dL (7-18)
[2022-04-13 10:55] LABS: BILIRUBIN,TOTAL 0.2 mg/dL (0.2-1); CREATININE 5.2 mg/dL (0.55-1.3); TOT PROT 5.9 g/dl (6.4-8.2)
[2022-04-13 15:42] VITALS: BMI 24.7
[2022-04-13] MEDS: ATORVASTATIN CA 80 MG TABLET (FP) PO SCH (22:05)
[2022-04-14] MEDS: INSULIN (NOVOLOG) ASPART 100 UNITS/ML 10ML VIAL SQ SCH ×4 (05:59→21:26)
[2022-04-14] MEDS: hydrALAZINE HCL 25 MG TABLET (FP) PO SCH ×3 (06:02→21:27)
[2022-04-14] MEDS: INSULIN (LEVEMIR) 100 UNITS/ML UNITS SQ SCH (09:58)
[2022-04-14] MEDS: PANTOPRAZOLE 40 MG TABLET PO SCH (10:41)
[2022-04-14] MEDS: metoPROLOL SUCCINATE 25 MG TAB.SR.24H (FP) PO SCH (10:41)
[2022-04-14] MEDS: BUDESONIDE/FORMETEROL FUMARATE 160/4.5 mcg INHALER IH SCH ×2 (10:41→21:37)
[2022-04-14] MEDS: ASPIRIN 81 MG CHEWABLE TABLETS PO SCH (10:41)
[2022-04-14] MEDS: DIVALPROEX SODIUM 250 MG TABLET E.C. PO SCH ×2 (10:41→22:35)
[2022-04-14] MEDS: amLODIPine BESYLATE 10 MG TABLET (FP) PO SCH (10:41)
[2022-04-14 10:47] LABS: CALCIUM 8.8 mg/dL (8.5-10.1)
[2022-04-14 10:48] LABS: ALBUMIN 2.8 g/dl (3.4-5.0); BLOOD UREA NITROGEN 92.9 mg/dL (7-18)
[2022-04-14 10:51] LABS: CREATININE 4.9 mg/dL (0.55-1.3)
[2022-04-14 10:53] LABS: BILIRUBIN,TOTAL 0.3 mg/dL (0.2-1); TOT PROT 6.8 g/dl (6.4-8.2)
[2022-04-14] MEDS: SODIUM CHLORIDE 0.45% 1,000 ML IV SCH (12:13)
[2022-04-14] MEDS: SODIUM ZIRCONIUM CYCLOSILICATE (LOKELMA) 5 GM PACKET PO SCH (13:33)
[2022-04-14] MEDS: ATORVASTATIN CA 80 MG TABLET (FP) PO SCH (22:26)
[2022-04-15 03:20] LABS: EPI CELLS >36 /uL (0-25.1); HYALINE CASTS 1 /uL (0-3.1); PH,URINE 7.5 (5.0-8.0); URINE APPEARANCE CLEAR; URINE BACTERIA 1062 /uL (0-1359); URINE BILIRUBIN NEGATIVE (NEGATIVE); URINE COLOR YELLOW; URINE GLUCOSE (UA) 1+ (NEGATIVE); URINE KETONE NEGATIVE (NEGATIVE); URINE LEUK ESTERASE 2+ (NEGATIVE); URINE NITRITE NEGATIVE (NEGATIVE); URINE PROTEIN 4+ (NEGATIVE); URINE RBC 18 /uL (0-23.9); URINE UROBILINOGEN 0.2 mg/dL (0.2-1.0); URINE WBC 242 /uL (0-25.8)
[2022-04-15] MEDS: hydrALAZINE HCL 25 MG TABLET (FP) PO SCH ×3 (05:38→21:03)
[2022-04-15] MEDS: ONDANSETRON 4 MG/2 ML VIAL IVPUSH PRN (05:42)
[2022-04-15] MEDS: INSULIN (NOVOLOG) ASPART 100 UNITS/ML 10ML VIAL SQ SCH ×4 (06:41→21:27)
[2022-04-15] MEDS: INSULIN (LEVEMIR) 100 UNITS/ML UNITS SQ SCH (09:27)
[2022-04-15 10:06] LABS: BASO % 0.7 % (0-2.0); HEMATOCRIT 29.4 % (32.4-45.2); HEMOGLOBIN 9.6 GM/dL (10.7-15.3); LYMPH % 20.7 % (8-40); MCH 26.6 pg (25.7-33.7); MCHC 32.7 g/dl (32.0-36.0); MEAN CELL VOLUME 81.4 fl (80-96); MEAN PLT VOLUME 8.4 fl (7.5-11.1); MONO % 6.4 % (3.8-10.2); NEUT % 69.2 % (42.8-82.8); PLATELET COUNT 272 10^3/uL (134-434); RBC 3.61 M/mm3 (3.60-5.2); WHITE BLOOD COUNT 5.1 K/mm3 (4.0-10.0)
[2022-04-15 10:42] LABS: CALCIUM 8.6 mg/dL (8.5-10.1)
[2022-04-15 10:44] LABS: ALBUMIN 2.5 g/dl (3.4-5.0)
[2022-04-15 10:46] LABS: CREATININE 4.8 mg/dL (0.55-1.3)
[2022-04-15 10:47] LABS: BILIRUBIN,TOTAL 0.3 mg/dL (0.2-1)
[2022-04-15] MEDS: amLODIPine BESYLATE 10 MG TABLET (FP) PO SCH (11:24)
[2022-04-15] MEDS: BUDESONIDE/FORMETEROL FUMARATE 160/4.5 mcg INHALER IH SCH ×2 (11:25→21:11)
[2022-04-15] MEDS: ASPIRIN 81 MG CHEWABLE TABLETS PO SCH (11:25)
[2022-04-15] MEDS: DIVALPROEX SODIUM 250 MG TABLET E.C. PO SCH ×2 (11:25→22:05)
[2022-04-15] MEDS: PANTOPRAZOLE 40 MG TABLET PO SCH (11:25)
[2022-04-15] MEDS: SODIUM ZIRCONIUM CYCLOSILICATE (LOKELMA) 5 GM PACKET PO SCH (11:25)
[2022-04-15] MEDS: NIFEdipine E.R 60 MG TABLET PO SCH ×2 (12:17→21:31)
[2022-04-15] MEDS: ATORVASTATIN CA 80 MG TABLET (FP) PO SCH (20:59)
[2022-04-15] MEDS: SODIUM CHLORIDE 0.45% 1,000 ML IV SCH (21:28)
[2022-04-16] MEDS: hydrALAZINE HCL 25 MG TABLET (FP) PO SCH ×3 (05:15→22:04)
[2022-04-16] MEDS: INSULIN (NOVOLOG) ASPART 100 UNITS/ML 10ML VIAL SQ SCH ×4 (06:23→22:05)
[2022-04-16] MEDS: INSULIN (LEVEMIR) 100 UNITS/ML UNITS SQ SCH (07:34)
[2022-04-16 11:17] LABS: CHLORIDE 102 mmol/L (98-107); SODIUM 135 mmol/L (136-145)
[2022-04-16] MEDS: ASPIRIN 81 MG CHEWABLE TABLETS PO SCH (11:29)
[2022-04-16] MEDS: PANTOPRAZOLE 40 MG TABLET PO SCH (11:29)
[2022-04-16] MEDS: NIFEdipine E.R 60 MG TABLET PO SCH ×2 (11:29→22:04)
[2022-04-16] MEDS: DIVALPROEX SODIUM 250 MG TABLET E.C. PO SCH ×2 (11:29→22:04)
[2022-04-16 11:36] LABS: ANION GAP 11 MMOL/L (8-16); CALCIUM 8.4 mg/dL (8.5-10.1); CO2 22 mmol/L (21-32); GLUCOSE,RANDOM 117 mg/dL (74-106)
[2022-04-16 11:40] LABS: CREATININE 5.4 mg/dL (0.55-1.3)
[2022-04-16 11:44] LABS: BLOOD UREA NITROGEN 105.6 mg/dL (7-18)
[2022-04-16] MEDS: BUDESONIDE/FORMETEROL FUMARATE 160/4.5 mcg INHALER IH SCH ×2 (13:01→22:04)
[2022-04-16] MEDS: SODIUM ZIRCONIUM CYCLOSILICATE (LOKELMA) 5 GM PACKET PO SCH (13:02)
[2022-04-16] MEDS: SODIUM CHLORIDE 1,000 ML IV SCH (13:52)
[2022-04-16] MEDS: ATORVASTATIN CA 80 MG TABLET (FP) PO SCH (22:04)
[2022-04-17] MEDS: INSULIN (LEVEMIR) 100 UNITS/ML UNITS SQ SCH (06:28)
[2022-04-17] MEDS: INSULIN (NOVOLOG) ASPART 100 UNITS/ML 10ML VIAL SQ SCH ×4 (06:29→23:05)
[2022-04-17] MEDS: hydrALAZINE HCL 25 MG TABLET (FP) PO SCH ×3 (06:29→23:04)
[2022-04-17] MEDS: SODIUM CHLORIDE 1,000 ML IV SCH ×2 (06:34→12:00)
[2022-04-17] MEDS: metoPROLOL SUCCINATE 25 MG TAB.SR.24H (FP) PO SCH (10:49)
[2022-04-17] MEDS: DIVALPROEX SODIUM 250 MG TABLET E.C. PO SCH ×2 (10:53→23:02)
[2022-04-17] MEDS: BUDESONIDE/FORMETEROL FUMARATE 160/4.5 mcg INHALER IH SCH ×2 (10:54→23:04)
[2022-04-17] MEDS: PANTOPRAZOLE 40 MG TABLET PO SCH (10:54)
[2022-04-17] MEDS: NIFEdipine E.R 60 MG TABLET PO SCH ×2 (10:54→23:04)
[2022-04-17 11:00] LABS: BASO % 0.6 % (0-2.0); HEMATOCRIT 29.5 % (32.4-45.2); HEMOGLOBIN 9.8 GM/dL (10.7-15.3); LYMPH % 17.5 % (8-40); MCH 27.2 pg (25.7-33.7); MCHC 33.2 g/dl (32.0-36.0); MEAN CELL VOLUME 81.8 fl (80-96); MONO % 6.6 % (3.8-10.2); NEUT % 72.3 % (42.8-82.8); PLATELET COUNT 247 10^3/uL (134-434); RBC 3.61 M/mm3 (3.60-5.2); RDW 17.7 % (11.6-15.6); WHITE BLOOD COUNT 5.2 K/mm3 (4.0-10.0)
[2022-04-17 11:19] LABS: CHLORIDE 102 mmol/L (98-107); SODIUM 135 mmol/L (136-145)
[2022-04-17 11:24] LABS: ALBUMIN 2.6 g/dl (3.4-5.0); ANION GAP 11 MMOL/L (8-16); CALCIUM 8.3 mg/dL (8.5-10.1); CO2 22 mmol/L (21-32)
[2022-04-17 11:25] LABS: GLUCOSE,RANDOM 130 mg/dL (74-106)
[2022-04-17 11:27] LABS: CREATININE 5.7 mg/dL (0.55-1.3); SGOT/AST 9 U/L (15-37)
[2022-04-17 11:28] LABS: SGPT/ALT 11 U/L (13-61)
[2022-04-17 11:29] LABS: BILIRUBIN,TOTAL 0.2 mg/dL (0.2-1); TOT PROT 6.2 g/dl (6.4-8.2)
[2022-04-17 11:30] LABS: ALK PHOS 81 U/L (45-117)
[2022-04-17 11:36] LABS: BLOOD UREA NITROGEN 108.2 mg/dL (7-18)
[2022-04-17] MEDS ORDERED: SODIUM CHLORIDE 1,000 ML IV SCH (15:33)
[2022-04-17] MEDS: SODIUM ZIRCONIUM CYCLOSILICATE (LOKELMA) 5 GM PACKET PO SCH (18:12)
[2022-04-17] MEDS: ATORVASTATIN CA 80 MG TABLET (FP) PO SCH (23:04)
[2022-04-18] MEDS: INSULIN (NOVOLOG) ASPART 100 UNITS/ML 10ML VIAL SQ SCH ×2 (06:34→12:01)
[2022-04-18] MEDS: INSULIN (LEVEMIR) 100 UNITS/ML UNITS SQ SCH (06:34)
[2022-04-18] MEDS: hydrALAZINE HCL 25 MG TABLET (FP) PO SCH ×3 (09:35→21:31)
[2022-04-18] MEDS: metoPROLOL SUCCINATE 25 MG TAB.SR.24H (FP) PO SCH (09:36)
[2022-04-18] MEDS: PANTOPRAZOLE 40 MG TABLET PO SCH (09:36)
[2022-04-18] MEDS: NIFEdipine E.R 60 MG TABLET PO SCH ×2 (09:36→21:32)
[2022-04-18] MEDS: DIVALPROEX SODIUM 250 MG TABLET E.C. PO SCH ×2 (09:37→21:34)
[2022-04-18] MEDS: SODIUM ZIRCONIUM CYCLOSILICATE (LOKELMA) 5 GM PACKET PO SCH (09:37)
[2022-04-18] MEDS: BUDESONIDE/FORMETEROL FUMARATE 160/4.5 mcg INHALER IH SCH ×2 (09:38→21:33)
[2022-04-18] MEDS ORDERED: FUROSEMIDE 40 MG/4 ML INJECTABLE VIAL IVPB ONE (11:59)
[2022-04-18] MEDS: INSULIN SLIDING SCALE (NOVOLOG) 1 VIAL SQ SCH ×2 (19:39→21:32)
[2022-04-18] MEDS: ATORVASTATIN CA 80 MG TABLET (FP) PO SCH (21:32)
[2022-04-19] MEDS: INSULIN SLIDING SCALE (NOVOLOG) 1 VIAL SQ SCH ×4 (06:04→21:15)
[2022-04-19] MEDS: hydrALAZINE HCL 25 MG TABLET (FP) PO SCH ×3 (06:04→21:06)
[2022-04-19] MEDS: INSULIN (LEVEMIR) 100 UNITS/ML UNITS SQ SCH (06:05)
[2022-04-19 09:27] LABS: EPI CELLS >36 /uL (0-25.1); HYALINE CASTS 1 /uL (0-3.1); PH,URINE 7.5 (5.0-8.0); URINE APPEARANCE CLEAR; URINE BACTERIA 1225 /uL (0-1359); URINE BILIRUBIN NEGATIVE (NEGATIVE); URINE COLOR YELLOW; URINE GLUCOSE (UA) NEGATIVE (NEGATIVE); URINE KETONE NEGATIVE (NEGATIVE); URINE LEUK ESTERASE 2+ (NEGATIVE); URINE NITRITE NEGATIVE (NEGATIVE); URINE PROTEIN 3+ (NEGATIVE); URINE RBC 7 /uL (0-23.9); URINE UROBILINOGEN 0.2 mg/dL (0.2-1.0); URINE WBC 322 /uL (0-25.8)
[2022-04-19 10:42] LABS: CHLORIDE 104 mmol/L (98-107); SODIUM 137 mmol/L (136-145)
[2022-04-19 10:47] LABS: ALBUMIN 2.7 g/dl (3.4-5.0); ANION GAP 13 MMOL/L (8-16); CALCIUM 8.6 mg/dL (8.5-10.1); CO2 21 mmol/L (21-32); GLUCOSE,RANDOM 177 mg/dL (74-106)
[2022-04-19 10:48] LABS: CREATININE 5.7 mg/dL (0.55-1.3); PHOSPHOROUS 6.8 mg/dL (2.5-4.9); SGOT/AST 11 U/L (15-37); SGPT/ALT 12 U/L (13-61)
[2022-04-19] MEDS: PANTOPRAZOLE 40 MG TABLET PO SCH (10:48)
[2022-04-19] MEDS: NIFEdipine E.R 60 MG TABLET PO SCH ×2 (10:49→21:06)
[2022-04-19] MEDS: BUDESONIDE/FORMETEROL FUMARATE 160/4.5 mcg INHALER IH SCH ×2 (10:49→21:07)
[2022-04-19] MEDS: DIVALPROEX SODIUM 250 MG TABLET E.C. PO SCH ×2 (10:49→21:07)
[2022-04-19] MEDS: SODIUM ZIRCONIUM CYCLOSILICATE (LOKELMA) 5 GM PACKET PO SCH (10:49)
[2022-04-19] MEDS: metoPROLOL SUCCINATE 25 MG TAB.SR.24H (FP) PO SCH (10:49)
[2022-04-19 10:51] LABS: ALK PHOS 83 U/L (45-117); BILIRUBIN,TOTAL 0.2 mg/dL (0.2-1); TOT PROT 6.5 g/dl (6.4-8.2)
[2022-04-19 10:52] LABS: BLOOD UREA NITROGEN 115.4 mg/dL (7-18)
[2022-04-19] MEDS ORDERED: FUROSEMIDE 40 MG/4 ML INJECTABLE VIAL IVPUSH ONE (12:01)
[2022-04-19] MEDS: ATORVASTATIN CA 80 MG TABLET (FP) PO SCH (21:06)
[2022-04-20] MEDS: hydrALAZINE HCL 25 MG TABLET (FP) PO SCH ×3 (05:11→21:44)
[2022-04-20] MEDS: INSULIN SLIDING SCALE (NOVOLOG) 1 VIAL SQ SCH ×4 (06:00→21:57)
[2022-04-20] MEDS: INSULIN (LEVEMIR) 100 UNITS/ML UNITS SQ SCH (06:00)
[2022-04-20] MEDS: metoPROLOL SUCCINATE 25 MG TAB.SR.24H (FP) PO SCH (09:11)
[2022-04-20] MEDS: DIVALPROEX SODIUM 250 MG TABLET E.C. PO SCH ×2 (09:11→21:44)
[2022-04-20] MEDS: PANTOPRAZOLE 40 MG TABLET PO SCH (09:11)
[2022-04-20] MEDS: BUDESONIDE/FORMETEROL FUMARATE 160/4.5 mcg INHALER IH SCH ×2 (09:13→21:45)
[2022-04-20] MEDS: NIFEdipine E.R 60 MG TABLET PO SCH ×2 (09:13→21:44)
[2022-04-20] MEDS: SODIUM ZIRCONIUM CYCLOSILICATE (LOKELMA) 5 GM PACKET PO SCH (10:49)
[2022-04-20 11:47] LABS: CHLORIDE 103 mmol/L (98-107); SODIUM 137 mmol/L (136-145)
[2022-04-20 11:52] LABS: ALBUMIN 2.6 g/dl (3.4-5.0); ANION GAP 10 MMOL/L (8-16); CALCIUM 8.5 mg/dL (8.5-10.1); CO2 23 mmol/L (21-32); GLUCOSE,RANDOM 103 mg/dL (74-106)
[2022-04-20 11:55] LABS: SGOT/AST 8 U/L (15-37); SGPT/ALT 12 U/L (13-61)
[2022-04-20 11:56] LABS: CREATININE 5.9 mg/dL (0.55-1.3)
[2022-04-20 11:57] LABS: BILIRUBIN,TOTAL 0.4 mg/dL (0.2-1); TOT PROT 6.2 g/dl (6.4-8.2)
[2022-04-20 11:58] LABS: ALK PHOS 74 U/L (45-117)
[2022-04-20 11:59] LABS: BLOOD UREA NITROGEN 119.7 mg/dL (7-18)
[2022-04-20] MEDS: FUROSEMIDE 40 MG/4 ML INJECTABLE VIAL IVPB SCH (15:52)
[2022-04-20] MEDS: ATORVASTATIN CA 80 MG TABLET (FP) PO SCH (21:44)
[2022-04-21] MEDS: INSULIN (LEVEMIR) 100 UNITS/ML UNITS SQ SCH (06:41)
[2022-04-21] MEDS: INSULIN SLIDING SCALE (NOVOLOG) 1 VIAL SQ SCH ×4 (06:42→21:56)
[2022-04-21] MEDS: hydrALAZINE HCL 25 MG TABLET (FP) PO SCH ×3 (06:48→21:44)
[2022-04-21] MEDS: FUROSEMIDE 40 MG/4 ML INJECTABLE VIAL IVPB SCH (10:51)
[2022-04-21] MEDS: PANTOPRAZOLE 40 MG TABLET PO SCH (10:51)
[2022-04-21] MEDS: metoPROLOL SUCCINATE 25 MG TAB.SR.24H (FP) PO SCH (10:51)
[2022-04-21] MEDS: NIFEdipine E.R 60 MG TABLET PO SCH ×2 (10:51→21:44)
[2022-04-21] MEDS: SODIUM ZIRCONIUM CYCLOSILICATE (LOKELMA) 5 GM PACKET PO SCH (10:51)
[2022-04-21] MEDS: BUDESONIDE/FORMETEROL FUMARATE 160/4.5 mcg INHALER IH SCH ×2 (10:52→21:45)
[2022-04-21] MEDS: DIVALPROEX SODIUM 250 MG TABLET E.C. PO SCH ×2 (10:53→22:48)
[2022-04-21] MEDS ORDERED: ALBUTEROL SO4 0.083% IH SOL 2.5 MG/3 ML VIAL.NEB. NEB PRN (15:22)
[2022-04-21] MEDS: ATORVASTATIN CA 80 MG TABLET (FP) PO SCH (21:44)
[2022-04-22] MEDS: INSULIN (LEVEMIR) 100 UNITS/ML UNITS SQ SCH (06:23)
[2022-04-22] MEDS: INSULIN SLIDING SCALE (NOVOLOG) 1 VIAL SQ SCH ×4 (06:24→22:30)
[2022-04-22] MEDS: hydrALAZINE HCL 25 MG TABLET (FP) PO SCH ×3 (06:25→22:22)
[2022-04-22 10:51] LABS: CHLORIDE 101 mmol/L (98-107); SODIUM 137 mmol/L (136-145)
[2022-04-22 10:56] LABS: CALCIUM 8.3 mg/dL (8.5-10.1)
[2022-04-22 10:57] LABS: ALBUMIN 2.4 g/dl (3.4-5.0); ANION GAP 14 MMOL/L (8-16); CO2 21 mmol/L (21-32); GLUCOSE,RANDOM 105 mg/dL (74-106)
[2022-04-22 11:00] LABS: CREATININE 6.4 mg/dL (0.55-1.3); SGOT/AST 15 U/L (15-37); SGPT/ALT 12 U/L (13-61)
[2022-04-22 11:01] LABS: BILIRUBIN,TOTAL 0.3 mg/dL (0.2-1); TOT PROT 6.1 g/dl (6.4-8.2)
[2022-04-22 11:03] LABS: ALK PHOS 73 U/L (45-117)
[2022-04-22 11:13] LABS: BLOOD UREA NITROGEN 137.6 mg/dL (7-18)
[2022-04-22] MEDS: PANTOPRAZOLE 40 MG TABLET PO SCH (11:59)
[2022-04-22] MEDS: NIFEdipine E.R 60 MG TABLET PO SCH ×2 (11:59→22:25)
[2022-04-22] MEDS: DIVALPROEX SODIUM 250 MG TABLET E.C. PO SCH ×2 (12:00→22:38)
[2022-04-22] MEDS: metoPROLOL SUCCINATE 25 MG TAB.SR.24H (FP) PO SCH (12:00)
[2022-04-22] MEDS: FUROSEMIDE 40 MG/4 ML INJECTABLE VIAL IVPB SCH (12:01)
[2022-04-22] MEDS: BUDESONIDE/FORMETEROL FUMARATE 160/4.5 mcg INHALER IH SCH ×2 (12:01→22:27)
[2022-04-22] MEDS: ONDANSETRON 4 MG/2 ML VIAL IVPUSH PRN (15:27)
[2022-04-22] MEDS: SODIUM ZIRCONIUM CYCLOSILICATE (LOKELMA) 5 GM PACKET PO SCH (17:51)
[2022-04-22] MEDS: ATORVASTATIN CA 80 MG TABLET (FP) PO SCH (22:25)
[2022-04-23] MEDS: hydrALAZINE HCL 25 MG TABLET (FP) PO SCH ×3 (05:32→23:18)
[2022-04-23] MEDS: INSULIN (LEVEMIR) 100 UNITS/ML UNITS SQ SCH (06:00)
[2022-04-23] MEDS: INSULIN SLIDING SCALE (NOVOLOG) 1 VIAL SQ SCH ×4 (06:01→23:30)
[2022-04-23 09:00] LABS: BASO % 0.4 % (0-2.0); EOS % 1.4 % (0-4.5); HEMATOCRIT 28.1 % (32.4-45.2); HEMOGLOBIN 9.3 GM/dL (10.7-15.3); LYMPH % 15.5 % (8-40); MCH 27.1 pg (25.7-33.7); MCHC 33.3 g/dl (32.0-36.0); MEAN CELL VOLUME 81.4 fl (80-96); MEAN PLT VOLUME 8.1 fl (7.5-11.1); MONO % 7.6 % (3.8-10.2); NEUT % 75.1 % (42.8-82.8); PLATELET COUNT 156 10^3/uL (134-434); RBC 3.45 M/mm3 (3.60-5.2); RDW 17.7 % (11.6-15.6); WHITE BLOOD COUNT 4.8 K/mm3 (4.0-10.0)
[2022-04-23 09:12] LABS: CHLORIDE 101 mmol/L (98-107); SODIUM 137 mmol/L (136-145)
[2022-04-23 09:18] LABS: ANION GAP 15 MMOL/L (8-16); CALCIUM 8.3 mg/dL (8.5-10.1); CO2 20 mmol/L (21-32)
[2022-04-23 09:19] LABS: ALBUMIN 2.5 g/dl (3.4-5.0); GLUCOSE,RANDOM 84 mg/dL (74-106)
[2022-04-23 09:21] LABS: SGPT/ALT 12 U/L (13-61)
[2022-04-23 09:22] LABS: BILIRUBIN,TOTAL 0.3 mg/dL (0.2-1); CREATININE 6.6 mg/dL (0.55-1.3); SGOT/AST 12 U/L (15-37)
[2022-04-23 09:23] LABS: TOT PROT 6.1 g/dl (6.4-8.2)
[2022-04-23 09:24] LABS: ALK PHOS 71 U/L (45-117)
[2022-04-23 09:55] LABS: BLOOD UREA NITROGEN 132.6 mg/dL (7-18)
[2022-04-23] MEDS ORDERED: FENTANYL CITRATE/PF 50 MCG/ML VIAL ONE (10:11)
[2022-04-23] MEDS ORDERED: MIDAZOLAM HCL 2 MG/2 ML SINGLE DOSE VIAL ONE (10:11)
[2022-04-23] MEDS: DIVALPROEX SODIUM 250 MG TABLET E.C. PO SCH ×2 (11:34→23:18)
[2022-04-23] MEDS: metoPROLOL SUCCINATE 25 MG TAB.SR.24H (FP) PO SCH (11:34)
[2022-04-23] MEDS: NIFEdipine E.R 60 MG TABLET PO SCH ×2 (11:35→23:19)
[2022-04-23] MEDS: PANTOPRAZOLE 40 MG TABLET PO SCH (11:35)
[2022-04-23] MEDS: FUROSEMIDE 40 MG TABLET (FP) PO SCH (11:35)
[2022-04-23] MEDS: BUDESONIDE/FORMETEROL FUMARATE 160/4.5 mcg INHALER IH SCH ×2 (11:38→23:20)
[2022-04-23] MEDS: SODIUM ZIRCONIUM CYCLOSILICATE (LOKELMA) 5 GM PACKET PO SCH (13:18)
[2022-04-23] MEDS ORDERED: SODIUM CHLORIDE 250 ML IV PRN (14:49)
[2022-04-23] MEDS: ATORVASTATIN CA 80 MG TABLET (FP) PO SCH (23:19)
[2022-04-24] MEDS: hydrALAZINE HCL 25 MG TABLET (FP) PO SCH ×3 (05:55→21:33)
[2022-04-24] MEDS: INSULIN (LEVEMIR) 100 UNITS/ML UNITS SQ SCH (06:01)
[2022-04-24] MEDS: INSULIN SLIDING SCALE (NOVOLOG) 1 VIAL SQ SCH ×3 (06:01→16:53)
[2022-04-24] MEDS ORDERED: INSULIN (LEVEMIR) 100 UNITS/ML UNITS SQ ONE (06:54)
[2022-04-24] MEDS: PANTOPRAZOLE 40 MG TABLET PO SCH (09:50)
[2022-04-24] MEDS: DIVALPROEX SODIUM 250 MG TABLET E.C. PO SCH ×2 (09:51→21:33)
[2022-04-24] MEDS: FUROSEMIDE 40 MG TABLET (FP) PO SCH (09:51)
[2022-04-24] MEDS: BUDESONIDE/FORMETEROL FUMARATE 160/4.5 mcg INHALER IH SCH (09:58)
[2022-04-24] MEDS: metoPROLOL SUCCINATE 25 MG TAB.SR.24H (FP) PO SCH (13:41)
[2022-04-24] MEDS: NIFEdipine E.R 60 MG TABLET PO SCH ×2 (13:41→21:34)
[2022-04-24] MEDS ORDERED: SODIUM CHLORIDE 250 ML IV PRN ×2 (14:14→18:43)
[2022-04-24] MEDS ORDERED: LIDOCAINE HCL 1%, 10 MG/ML (50 mL VIAL) INF ONE (18:10)
[2022-04-24] MEDS ORDERED: ceFAZolin SODIUM 1 GM VIAL IVPB ONE (18:15)
[2022-04-24] MEDS ORDERED: ONDANSETRON 4 MG/2 ML VIAL ONE (18:35)
[2022-04-24] MEDS ORDERED: ONDANSETRON 4 MG/2 ML VIAL IVPUSH ONE (18:36)
[2022-04-24] MEDS ORDERED: ALBUTEROL SO4 0.083% IH SOL 2.5 MG/3 ML VIAL.NEB. NEB PRN (18:43)
[2022-04-24] MEDS ORDERED: ONDANSETRON 4 MG/2 ML VIAL IVPUSH PRN (18:43)
[2022-04-24] MEDS: ATORVASTATIN CA 80 MG TABLET (FP) PO SCH (21:34)
[2022-04-25] MEDS: INSULIN SLIDING SCALE (NOVOLOG) 1 VIAL SQ SCH ×5 (00:10→22:47)
[2022-04-25] MEDS: BUDESONIDE/FORMETEROL FUMARATE 160/4.5 mcg INHALER IH SCH ×3 (00:11→22:47)
[2022-04-25] MEDS: hydrALAZINE HCL 25 MG TABLET (FP) PO SCH ×4 (06:19→23:22)
[2022-04-25] MEDS: INSULIN (LEVEMIR) 100 UNITS/ML UNITS SQ SCH (06:55)
[2022-04-25] MEDS: metoPROLOL SUCCINATE 25 MG TAB.SR.24H (FP) PO SCH (11:02)
[2022-04-25] MEDS: FUROSEMIDE 40 MG TABLET (FP) PO SCH (11:02)
[2022-04-25] MEDS: NIFEdipine E.R 60 MG TABLET PO SCH ×4 (11:02→23:23)
[2022-04-25] MEDS: PANTOPRAZOLE 40 MG TABLET PO SCH (11:02)
[2022-04-25] MEDS: DIVALPROEX SODIUM 250 MG TABLET E.C. PO SCH ×2 (11:03→23:23)
[2022-04-25] MEDS: ATORVASTATIN CA 80 MG TABLET (FP) PO SCH ×2 (22:46→23:23)
[2022-04-26] MEDS: hydrALAZINE HCL 25 MG TABLET (FP) PO SCH ×4 (00:31→22:53)
[2022-04-26] MEDS: ATORVASTATIN CA 80 MG TABLET (FP) PO SCH ×2 (00:32→22:53)
[2022-04-26] MEDS: INSULIN (LEVEMIR) 100 UNITS/ML UNITS SQ SCH (06:38)
[2022-04-26] MEDS: INSULIN SLIDING SCALE (NOVOLOG) 1 VIAL SQ SCH ×4 (06:39→22:54)
[2022-04-26] MEDS: NIFEdipine E.R 60 MG TABLET PO SCH ×2 (09:08→22:53)
[2022-04-26] MEDS: PANTOPRAZOLE 40 MG TABLET PO SCH (09:08)
[2022-04-26] MEDS: metoPROLOL SUCCINATE 25 MG TAB.SR.24H (FP) PO SCH (09:09)
[2022-04-26] MEDS: DIVALPROEX SODIUM 250 MG TABLET E.C. PO SCH ×2 (09:09→22:53)
[2022-04-26] MEDS: FUROSEMIDE 40 MG TABLET (FP) PO SCH (09:09)
[2022-04-26] MEDS: BUDESONIDE/FORMETEROL FUMARATE 160/4.5 mcg INHALER IH SCH ×2 (09:11→22:54)
[2022-04-26] MEDS ORDERED: SODIUM CHLORIDE 250 ML IV PRN (12:00)
[2022-04-26 13:52] LABS: HEMATOCRIT 27.8 % (32.4-45.2); HEMOGLOBIN 9.4 GM/dL (10.7-15.3); MCH 27.5 pg (25.7-33.7); MCHC 33.8 g/dl (32.0-36.0); MEAN CELL VOLUME 81.4 fl (80-96); MEAN PLT VOLUME 7.3 fl (7.5-11.1); PLATELET COUNT 134 10^3/uL (134-434); RBC 3.42 M/mm3 (3.60-5.2); WHITE BLOOD COUNT 5.8 K/mm3 (4.0-10.0)
[2022-04-26 14:26] LABS: CALCIUM 8.2 mg/dL (8.5-10.1)
[2022-04-26 14:30] LABS: CREATININE 5.4 mg/dL (0.55-1.3)
[2022-04-26 14:34] LABS: BLOOD UREA NITROGEN 86.1 mg/dL (7-18)
[2022-04-27] MEDS: hydrALAZINE HCL 25 MG TABLET (FP) PO SCH ×3 (05:59→21:21)
[2022-04-27] MEDS: INSULIN (LEVEMIR) 100 UNITS/ML UNITS SQ SCH (06:12)
[2022-04-27] MEDS: INSULIN SLIDING SCALE (NOVOLOG) 1 VIAL SQ SCH ×4 (06:12→21:42)
[2022-04-27] MEDS: FUROSEMIDE 40 MG TABLET (FP) PO SCH (10:24)
[2022-04-27] MEDS: DIVALPROEX SODIUM 250 MG TABLET E.C. PO SCH ×2 (10:24→21:23)
[2022-04-27] MEDS: NIFEdipine E.R 60 MG TABLET PO SCH ×2 (10:24→21:27)
[2022-04-27] MEDS: metoPROLOL SUCCINATE 25 MG TAB.SR.24H (FP) PO SCH (10:24)
[2022-04-27] MEDS: PANTOPRAZOLE 40 MG TABLET PO SCH (10:24)
[2022-04-27] MEDS: BUDESONIDE/FORMETEROL FUMARATE 160/4.5 mcg INHALER IH SCH ×2 (10:24→21:35)
[2022-04-27] MEDS: ASPIRIN 81 MG CHEWABLE TABLETS PO SCH (10:24)
[2022-04-27] MEDS ORDERED: SODIUM CHLORIDE 250 ML IV PRN (15:24)
[2022-04-27 16:14] VITALS: RESP 18
[2022-04-27] MEDS: ATORVASTATIN CA 80 MG TABLET (FP) PO SCH (21:26)
[2022-04-28] MEDS: hydrALAZINE HCL 25 MG TABLET (FP) PO SCH (06:31)
[2022-04-28] MEDS: INSULIN (LEVEMIR) 100 UNITS/ML UNITS SQ SCH (06:32)
[2022-04-28] MEDS: INSULIN SLIDING SCALE (NOVOLOG) 1 VIAL SQ SCH ×2 (06:33→11:30)
[2022-04-28 09:39] VITALS: BP 132/79; PULSE 66; TEMP 97.9
[2022-04-28] MEDS: FUROSEMIDE 40 MG TABLET (FP) PO SCH (09:40)
[2022-04-28] MEDS: ASPIRIN 81 MG CHEWABLE TABLETS PO SCH (09:40)
[2022-04-28] MEDS: BUDESONIDE/FORMETEROL FUMARATE 160/4.5 mcg INHALER IH SCH (09:40)
[2022-04-28] MEDS: PANTOPRAZOLE 40 MG TABLET PO SCH (09:40)
[2022-04-28] MEDS: metoPROLOL SUCCINATE 25 MG TAB.SR.24H (FP) PO SCH (09:40)
[2022-04-28] MEDS: NIFEdipine E.R 60 MG TABLET PO SCH (09:40)
[2022-04-28] MEDS: DIVALPROEX SODIUM 250 MG TABLET E.C. PO SCH (09:42)
== END 2022-04-28 11:28 | DRG 280 ==
LOC: SUPCPDRO 14:50 → JER 14:50 → JERBED 18:49 → J4W 04-04 06:29 → J5S 04-05 13:35
PROVIDERS: ADMIT Internal Medicine; ATTEND Family Medicine
PROC: 5A1D70Z Performance of Urinary Filtration, Intermittent, Less than 6 Hours Per Day (ICD-10-PCS; 2022-04-24)
PROC: 5A1D70Z Performance of Urinary Filtration, Intermittent, Less than 6 Hours Per Day (ICD-10-PCS; 2022-04-24)
PROC: 05HM33Z Insertion of Infusion Device into Right Internal Jugular Vein, Percutaneous Approach (ICD-10-PCS; 2022-04-24)
PROC: B543ZZA Ultrasonography of Right Jugular Veins, Guidance (ICD-10-PCS; 2022-04-24)
PROC: 5A1D70Z Performance of Urinary Filtration, Intermittent, Less than 6 Hours Per Day (ICD-10-PCS; principal; 2022-04-24 16:30)
DX: I13.2 Hypertensive heart and chronic kidney disease with heart failure and with stage 5 chronic kidney disease, or end stage renal disease (principal); I21.4 Non-ST elevation (NSTEMI) myocardial infarction; G93.41 Metabolic encephalopathy; I50.33 Acute on chronic diastolic (congestive) heart failure; N18.6 End stage renal disease; N17.9 Acute kidney failure, unspecified; I25.10 Atherosclerotic heart disease of native coronary artery without angina pectoris; E78.5 Hyperlipidemia, unspecified; F03.90 Unspecified dementia, unspecified severity, without behavioral disturbance, psychotic disturbance, mood disturbance, and anxiety; J44.9 Chronic obstructive pulmonary disease, unspecified; E11.22 Type 2 diabetes mellitus with diabetic chronic kidney disease; R09.02 Hypoxemia; R11.10 Vomiting, unspecified; R80.9 Proteinuria, unspecified; E11.40 Type 2 diabetes mellitus with diabetic neuropathy, unspecified; G40.909 Epilepsy, unspecified, not intractable, without status epilepticus; E11.65 Type 2 diabetes mellitus with hyperglycemia; E87.5 Hyperkalemia; D64.9 Anemia, unspecified; Z86.73 Personal history of transient ischemic attack (TIA), and cerebral infarction without residual deficits; Z99.2 Dependence on renal dialysis
CPT/HCPCS: 0241U-QW; 36415; 50200; 71045-TC-FY; 71046-TC-FY; 74176-TC; 76000-TC-FY; 76705-TC; 76775-TC; 80048; 80053; 81003; 82436; 82570; 82607; 82728; 82746; 82962; 82977; 83036; 83516; 83520; 83540; 83550; 83880; 84100; 84133; 84155; 84156; 84165; 84300; 84484; 85025; 85027; 85610; 86038; 86160; 86225; 86256; 86704; 86803; 87086; 87340; 87517; 93005; 93010; 93971; 94640; 94760; 94761; 97116-GP; 97161-GP; 99285-25; C1750; C9803-CS; J1756; U0003; U0005

== ENCOUNTER 2023-07-25 21:50 | Inpatient (IN) | payer OTHER ==
[2023-07-25 22:18] VITALS: BMI 23.0
[2023-07-25] MEDS ORDERED: ACETAMINOPHEN INJECTION 100 ML IVPB ONE (22:44)
[2023-07-25] MEDS: ACETAMINOPHEN 1000 MG/100 ML BAG IVPB ONE (22:49)
[2023-07-25] MEDS: ACETAMINOPHEN 500 MG TABLET (FP) PO ONE (22:49)
[2023-07-25 23:14] LABS: BASO % 0.7 % (0-2.0); EOS % 1.7 % (0-4.5); HEMOGLOBIN 11.1 GM/dL (10.7-15.3); LYMPH % 13.9 % (8-40); MCH 31.3 pg (25.7-33.7); MCHC 33.7 g/dl (32.0-36.0); MEAN PLT VOLUME 7.6 fl (7.5-11.1); MONO % 5.3 % (3.8-10.2); NEUT % 78.4 % (42.8-82.8); PLATELET COUNT 231 10^3/uL (134-434); RBC 3.55 M/mm3 (3.60-5.2); RDW 15.8 % (11.6-15.6); VENOUS BASE EXCESS 1.1 mmol/L (-2-2); VENOUS O2 SATURATION 48.2 % (70-80); VENOUS PCO2 48.4 mmHg (38-52); VENOUS PH 7.365 (7.310-7.410); WHITE BLOOD COUNT 6.7 K/mm3 (4.0-10.0)
[2023-07-25 23:20] LABS: INR 1.18 (0.83-1.09); PROTHROMBIN TIME (PATIENT) 13.3 SEC (9.7-13.0)
[2023-07-25 23:23] LABS: ACTIVATED PTT 33.3 SECONDS (25.2-36.5)
[2023-07-25] MEDS ORDERED: amLODIPine BESYLATE 2.5 MG TABLET (FP) ONE (23:55)
[2023-07-26] MEDS: amLODIPine BESYLATE 5 MG TABLET (FP) PO ONE (00:01)
[2023-07-26 00:20] LABS: ALBUMIN 3.3 g/dl (3.4-5.0); BILIRUBIN,TOTAL 0.6 mg/dL (0.2-1); BLOOD UREA NITROGEN 31.8 mg/dL (7-18); CALCIUM 9.7 mg/dL (8.5-10.1); CREATININE 2.8 mg/dL (0.55-1.3); MAGNESIUM 2.4 mg/dL (1.8-2.4); N-TERMINAL BNP 135586.1 pg/ml (5-125); PHOSPHOROUS 4.5 mg/dL (2.5-4.9); POTASSIUM 4.3 mmol/L (3.5-5.1); TOT PROT 9.2 g/dl (6.4-8.2)
[2023-07-26] MEDS ORDERED: FUROSEMIDE 40 MG/4 ML INJECTABLE VIAL ONE (01:52)
[2023-07-26] MEDS: FUROSEMIDE 40 MG/4 ML INJECTABLE VIAL IVPUSH ONE ×3 (02:06→10:03)
[2023-07-26] MEDS ORDERED: ALBUTEROL SO4 HFA INHALER IH PRN (02:34)
[2023-07-26] MEDS: BUDESONIDE/FORMETEROL FUMARATE 80/4.5 mcg INHALER IH SCH (09:48)
[2023-07-26] MEDS: amLODIPine BESYLATE 5 MG TABLET (FP) PO SCH (09:49)
[2023-07-26] MEDS: ASPIRIN COATED 81 MG TABLET.EC PO SCH (10:03)
[2023-07-26] MEDS: DIVALPROEX NA *ER* EXTEND REL 500 MG TABLET.SA (FP) PO SCH (11:27)
[2023-07-26] MEDS ORDERED: SODIUM CHLORIDE 250 ML IV PRN (16:06)
[2023-07-26] MEDS: ATORVASTATIN CA 80 MG TABLET (FP) PO SCH (21:42)
[2023-07-27 07:33] LABS: BASO % 0.7 % (0-2.0); EOS % 2.1 % (0-4.5); HEMOGLOBIN 10.9 GM/dL (10.7-15.3); LYMPH % 17.9 % (8-40); MCH 31.9 pg (25.7-33.7); MCHC 33.9 g/dl (32.0-36.0); MEAN PLT VOLUME 7.9 fl (7.5-11.1); MONO % 6.1 % (3.8-10.2); NEUT % 73.2 % (42.8-82.8); PLATELET COUNT 228 10^3/uL (134-434); RBC 3.41 M/mm3 (3.60-5.2); RDW 15.9 % (11.6-15.6); WHITE BLOOD COUNT 6.6 K/mm3 (4.0-10.0)
[2023-07-27 08:09] LABS: ALBUMIN 3.2 g/dl (3.4-5.0); CALCIUM 9.9 mg/dL (8.5-10.1)
[2023-07-27 08:11] LABS: BLOOD UREA NITROGEN 53.3 mg/dL (7-18)
[2023-07-27 08:12] LABS: CREATININE 4.5 mg/dL (0.55-1.3)
[2023-07-27 08:15] LABS: BILIRUBIN,TOTAL 0.7 mg/dL (0.2-1); TOT PROT 7.7 g/dl (6.4-8.2)
[2023-07-27] MEDS: FUROSEMIDE 40 MG TABLET (FP) PO SCH (11:55)
[2023-07-28 11:09] VITALS: BP 152/69; PULSE 61; RESP 18; TEMP 98.2
== END 2023-07-28 13:10 | disposition home or self-care (01) | DRG 640 ==
LOC: JER 21:50 → JERBED 07-26 02:22 → J4W 07-26 03:43 → OBSVTOIN 07-26 10:13
PROVIDERS: ADMIT Student in an Organized Health Care Education/Training Program; ATTEND Family Medicine
PROC: 5A1D70Z Performance of Urinary Filtration, Intermittent, Less than 6 Hours Per Day (ICD-10-PCS; principal; 2023-07-27)
DX: E87.70 Fluid overload, unspecified (principal); N18.6 End stage renal disease; I13.0 Hypertensive heart and chronic kidney disease with heart failure and stage 1 through stage 4 chronic kidney disease, or unspecified chronic kidney disease; I50.32 Chronic diastolic (congestive) heart failure; E78.5 Hyperlipidemia, unspecified; F03.90 Unspecified dementia, unspecified severity, without behavioral disturbance, psychotic disturbance, mood disturbance, and anxiety; E11.51 Type 2 diabetes mellitus with diabetic peripheral angiopathy without gangrene; R80.9 Proteinuria, unspecified; N18.9 Chronic kidney disease, unspecified; I25.10 Atherosclerotic heart disease of native coronary artery without angina pectoris; E11.22 Type 2 diabetes mellitus with diabetic chronic kidney disease; Z95.5 Presence of coronary angioplasty implant and graft; Z95.1 Presence of aortocoronary bypass graft; Z99.2 Dependence on renal dialysis
CPT/HCPCS: 0241U-QW; 36415; 71045-TC-FY; 80053; 82550; 82803; 82962; 83735; 83880; 84100; 84484; 85025; 85610; 85730; 86704; 86803; 86850; 86900; 86901; 87340; 87517; 93005; 93010; 93306-TC; 93971-TC; 99285-25; G0378; J0131

== ENCOUNTER 2023-09-02 21:39 | Inpatient (IN) | payer OTHER ==
[2023-09-03 00:23] LABS: BASO % 0.6 % (0-2.0); EOS % 1.6 % (0-4.5); HEMATOCRIT 31.3 % (32.4-45.2); HEMOGLOBIN 10.6 GM/dL (10.7-15.3); LYMPH % 13.6 % (8-40); MCH 31.4 pg (25.7-33.7); MCHC 33.7 g/dl (32.0-36.0); MEAN CELL VOLUME 93.1 fl (80-96); MEAN PLT VOLUME 7.5 fl (7.5-11.1); MONO % 7.3 % (3.8-10.2); NEUT % 76.9 % (42.8-82.8); PLATELET COUNT 269 10^3/uL (134-434); RBC 3.36 M/mm3 (3.60-5.2); RDW 16.6 % (11.6-15.6); VENOUS BASE EXCESS -0.3 mmol/L (-2-2); VENOUS O2 SATURATION 55.2 % (70-80); VENOUS PCO2 41.2 mmHg (38-52); VENOUS PH 7.394 (7.310-7.410); WHITE BLOOD COUNT 8.3 K/mm3 (4.0-10.0)
[2023-09-03 00:30] LABS: INR 1.23 (0.83-1.09); PROTHROMBIN TIME (PATIENT) 13.8 SEC (9.7-13.0)
[2023-09-03 00:33] LABS: ACTIVATED PTT 31.8 SECONDS (25.2-36.5)
[2023-09-03 00:42] LABS: CHLORIDE 99 mmol/L (98-107); POTASSIUM 4.5 mmol/L (3.5-5.1); SODIUM 135 mmol/L (136-145)
[2023-09-03 00:46] LABS: ALBUMIN 3.2 g/dl (3.4-5.0); ANION GAP 13 mmol/L (4-13); BLOOD UREA NITROGEN 61.5 mg/dL (7-18); CALCIUM 9.7 mg/dL (8.5-10.1); CO2 23 mmol/L (21-32); GLUCOSE,RANDOM 196 mg/dL (74-106); MAGNESIUM 2.7 mg/dL (1.8-2.4)
[2023-09-03 00:48] LABS: CREATININE 5.8 mg/dL (0.55-1.3); PHOSPHOROUS 6.7 mg/dL (2.5-4.9); SGOT/AST 25 U/L (15-37); SGPT/ALT 26 U/L (13-61)
[2023-09-03 00:50] LABS: ALK PHOS 234 U/L (45-117); BILIRUBIN,TOTAL 0.7 mg/dL (0.2-1); TOT PROT 7.7 g/dl (6.4-8.2)
[2023-09-03 04:28] LABS: N-TERMINAL BNP > 175000.0 pg/ml (5-125)
[2023-09-03] MEDS ORDERED: ALBUTEROL SO4 HFA INHALER IH PRN (06:51)
[2023-09-03] MEDS ORDERED: amLODIPine BESYLATE 5 MG TABLET (FP) ONE (10:04)
[2023-09-03] MEDS ORDERED: DIVALPROEX NA *ER* EXTEND REL 250 MG TABLET.SA ONE (10:04)
[2023-09-03] MEDS ORDERED: METOPROLOL TARTRATE 50 MG TABLET (FP) ONE (10:04)
[2023-09-03] MEDS: amLODIPine BESYLATE 5 MG TABLET (FP) PO SCH (10:11)
[2023-09-03] MEDS: DIVALPROEX NA *ER* EXTEND REL 500 MG TABLET.SA (FP) PO SCH (10:11)
[2023-09-03] MEDS ORDERED: SODIUM CHLORIDE 250 ML IV PRN (10:25)
[2023-09-03] MEDS: ATORVASTATIN CA 80 MG TABLET (FP) PO SCH (21:25)
[2023-09-04 00:05] VITALS: BMI 21.6
[2023-09-04] MEDS: MELATONIN 5 MG TABLETS PO ONE (00:12)
[2023-09-04] MEDS: ASPIRIN 81 MG CHEWABLE TABLETS PO SCH (09:09)
[2023-09-04] MEDS: ISOSORBIDE MONONITRATE 30 MG TAB.SR.24H (FP) PO SCH (09:09)
[2023-09-04] MEDS ORDERED: TRIMETHOBENZAMIDE HCL 200MG/2ML INJ IM PRN (18:23)
[2023-09-04] MEDS: TRIMETHOBENZAMIDE HCL 200MG/2ML INJ IM PRN (18:45)
[2023-09-05] MEDS ORDERED: SODIUM CHLORIDE 250 ML IV PRN (07:33)
[2023-09-05] MEDS: EPOETIN ALFA-EPBX 4,000 UNIT/ML VIAL IVPUSH ONE (08:59)
[2023-09-05 09:07] LABS: HEMATOCRIT 28.4 % (32.4-45.2); HEMOGLOBIN 9.3 GM/dL (10.7-15.3); MCH 31.1 pg (25.7-33.7); MCHC 32.9 g/dl (32.0-36.0); MEAN CELL VOLUME 94.5 fl (80-96); MEAN PLT VOLUME 7.5 fl (7.5-11.1); PLATELET COUNT 230 10^3/uL (134-434); RDW 16.6 % (11.6-15.6); WHITE BLOOD COUNT 5.9 K/mm3 (4.0-10.0)
[2023-09-05] MEDS: HEPARIN NA (PORCINE) 5,000 UNITS/ML 1ML VIAL IVPUSH ONE (09:17)
[2023-09-05 09:26] LABS: POTASSIUM 3.7 mmol/L (3.5-5.1)
[2023-09-05 09:28] LABS: CALCIUM 8.7 mg/dL (8.5-10.1)
[2023-09-05 09:29] LABS: ALBUMIN 2.7 g/dl (3.4-5.0)
[2023-09-05 09:32] LABS: CREATININE 3.9 mg/dL (0.55-1.3)
[2023-09-05 09:33] LABS: BILIRUBIN,TOTAL 0.6 mg/dL (0.2-1); TOT PROT 6.6 g/dl (6.4-8.2)
[2023-09-05 09:35] LABS: BLOOD UREA NITROGEN 29.7 mg/dL (7-18)
[2023-09-05] MEDS: VALSARTAN 40 MG TABLET PO SCH (11:35)
[2023-09-05] MEDS: COLLAGENASE CLOSTRIDIUM HIST. 30 GRAMS TUBE TP SCH (17:16)
[2023-09-06 12:40] LABS: BASO % 0.7 % (0-2.0); EOS % 1.1 % (0-4.5); HEMATOCRIT 31.6 % (32.4-45.2); HEMOGLOBIN 10.4 GM/dL (10.7-15.3); LYMPH % 12.5 % (8-40); MCH 31.2 pg (25.7-33.7); MCHC 32.9 g/dl (32.0-36.0); MEAN CELL VOLUME 94.8 fl (80-96); MEAN PLT VOLUME 7.6 fl (7.5-11.1); MONO % 7.8 % (3.8-10.2); NEUT % 77.9 % (42.8-82.8); PLATELET COUNT 240 10^3/uL (134-434); RBC 3.34 M/mm3 (3.60-5.2); RDW 16.9 % (11.6-15.6)
[2023-09-06 13:07] LABS: POTASSIUM 3.5 mmol/L (3.5-5.1)
[2023-09-06 13:09] LABS: ALBUMIN 3.2 g/dl (3.4-5.0); CALCIUM 9.2 mg/dL (8.5-10.1)
[2023-09-06 13:10] LABS: BLOOD UREA NITROGEN 22.5 mg/dL (7-18)
[2023-09-06 13:12] LABS: CREATININE 3.7 mg/dL (0.55-1.3)
[2023-09-06 13:14] LABS: BILIRUBIN,TOTAL 0.6 mg/dL (0.2-1); TOT PROT 7.9 g/dl (6.4-8.2)
[2023-09-06] MEDS: AMOX TR/POT CLAV 500MG/125MG TABLETS (FP) PO SCH (16:36)
[2023-09-07] MEDS ORDERED: SODIUM CHLORIDE 250 ML IV PRN (10:00)
[2023-09-07] MEDS: EPOETIN ALFA-EPBX 4,000 UNIT/ML VIAL SQ ONE (10:06)
[2023-09-07] MEDS: HEPARIN NA (PORCINE) 5,000 UNITS/ML 1ML VIAL IVPUSH ONE (10:07)
[2023-09-07 10:25] LABS: HEMATOCRIT 28.8 % (32.4-45.2); HEMOGLOBIN 9.6 GM/dL (10.7-15.3); MCH 30.9 pg (25.7-33.7); MCHC 33.2 g/dl (32.0-36.0); MEAN PLT VOLUME 7.6 fl (7.5-11.1); PLATELET COUNT 223 10^3/uL (134-434); RDW 16.7 % (11.6-15.6); WHITE BLOOD COUNT 6.2 K/mm3 (4.0-10.0)
[2023-09-07 10:46] LABS: POTASSIUM 3.8 mmol/L (3.5-5.1)
[2023-09-07 10:47] LABS: CALCIUM 8.5 mg/dL (8.5-10.1)
[2023-09-07 10:48] LABS: BLOOD UREA NITROGEN 29.2 mg/dL (7-18)
[2023-09-07 10:51] LABS: CREATININE 4.6 mg/dL (0.55-1.3)
[2023-09-07] MEDS ORDERED: AMOX TR/POT CLAV 500MG/125MG TABLETS (FP) PO SCH (17:27)
[2023-09-07] MEDS: AMOX TR/POT CLAV 500MG/125MG TABLETS (FP) PO SCH (17:35)
[2023-09-09] MEDS ORDERED: SODIUM CHLORIDE 250 ML IV PRN (14:41)
[2023-09-10 09:49] LABS: HEMATOCRIT 29.8 % (32.4-45.2); MCH 31.4 pg (25.7-33.7); MCHC 33.4 g/dl (32.0-36.0); MEAN PLT VOLUME 7.8 fl (7.5-11.1); PLATELET COUNT 251 10^3/uL (134-434); RBC 3.17 M/mm3 (3.60-5.2); RDW 17.1 % (11.6-15.6); WHITE BLOOD COUNT 7.9 K/mm3 (4.0-10.0)
[2023-09-10 10:06] LABS: BLOOD UREA NITROGEN 43.4 mg/dL (7-18); CALCIUM 8.3 mg/dL (8.5-10.1); POTASSIUM 4.3 mmol/L (3.5-5.1)
[2023-09-10 10:09] LABS: CREATININE 5.8 mg/dL (0.55-1.3)
[2023-09-10] MEDS: EPOETIN ALFA-EPBX 10,000 UNIT/ML VIAL IVPUSH ONE (11:03)
[2023-09-11] MEDS ORDERED: SODIUM CHLORIDE 250 ML IV PRN (12:49)
[2023-09-12] MEDS ORDERED: LIDOCAINE HCL 1%, 10 MG/ML (20ML VIAL) ONE (13:13)
[2023-09-12] MEDS ORDERED: HEPARIN NA (PORCINE) 5,000 UNITS/ML 1ML VIAL ONE (13:14)
[2023-09-12] MEDS: LIDOCAINE HCL 1%, 10 MG/ML (20ML VIAL) NR ONE (16:53)
[2023-09-12] MEDS: HEPARIN NA (PORCINE) 5,000 UNITS/ML 1ML VIAL SQ ONE (16:55)
[2023-09-13] MEDS ORDERED: SODIUM CHLORIDE 250 ML IV PRN (12:01)
[2023-09-13 15:21] VITALS: BP 117/73; PULSE 61; RESP 18; TEMP 98.9
== END 2023-09-13 15:27 | disposition home or self-care (01) | DRG 291 ==
LOC: JER 21:39 → INTOOBSV 09-03 01:12 → JERBED 09-03 01:12 → J7W 09-03 19:10 → OBSVTOIN 09-06 10:12 → J5S 09-08 03:22
PROVIDERS: ADMIT Internal Medicine; ATTEND Family Medicine
PROC: 5A1D70Z Performance of Urinary Filtration, Intermittent, Less than 6 Hours Per Day (ICD-10-PCS; principal; 2023-09-03)
PROC: 5A1D70Z Performance of Urinary Filtration, Intermittent, Less than 6 Hours Per Day (ICD-10-PCS; 2023-09-05)
PROC: 5A1D70Z Performance of Urinary Filtration, Intermittent, Less than 6 Hours Per Day (ICD-10-PCS; 2023-09-07)
PROC: 5A1D70Z Performance of Urinary Filtration, Intermittent, Less than 6 Hours Per Day (ICD-10-PCS; 2023-09-10)
PROC: 5A1D70Z Performance of Urinary Filtration, Intermittent, Less than 6 Hours Per Day (ICD-10-PCS; 2023-09-13)
DX: I13.2 Hypertensive heart and chronic kidney disease with heart failure and with stage 5 chronic kidney disease, or end stage renal disease (principal); I50.43 Acute on chronic combined systolic (congestive) and diastolic (congestive) heart failure; N18.6 End stage renal disease; I27.20 Pulmonary hypertension, unspecified; F03.90 Unspecified dementia, unspecified severity, without behavioral disturbance, psychotic disturbance, mood disturbance, and anxiety; E11.22 Type 2 diabetes mellitus with diabetic chronic kidney disease; E11.51 Type 2 diabetes mellitus with diabetic peripheral angiopathy without gangrene; J44.9 Chronic obstructive pulmonary disease, unspecified; E11.621 Type 2 diabetes mellitus with foot ulcer; L97.529 Non-pressure chronic ulcer of other part of left foot with unspecified severity; I25.10 Atherosclerotic heart disease of native coronary artery without angina pectoris; R11.10 Vomiting, unspecified; R80.9 Proteinuria, unspecified; E78.5 Hyperlipidemia, unspecified; Z99.2 Dependence on renal dialysis; Z95.5 Presence of coronary angioplasty implant and graft; Z95.1 Presence of aortocoronary bypass graft; Z86.73 Personal history of transient ischemic attack (TIA), and cerebral infarction without residual deficits
CPT/HCPCS: 36415; 71045-TC-FY; 73718-TC-LT; 80048; 80053; 82803; 83690; 83735; 83880; 84100; 84484; 85025; 85027; 85610; 85730; 86705; 86803; 87340; 93005; 93010; 93926-TC; 93985; 99285-25; G0378; J1644; Q5106

== ENCOUNTER 2023-11-26 07:36 | Inpatient (IN) | payer OTHER ==
[2023-11-26 11:09] LABS: HEMOGLOBIN 11.1 GM/dL (10.7-15.3); MCH 31.3 pg (25.7-33.7); MCHC 33.5 g/dl (32.0-36.0); MEAN CELL VOLUME 93.2 fl (80-96); MEAN PLT VOLUME 7.6 fl (7.5-11.1); PLATELET COUNT 265 10^3/uL (134-434); RBC 3.54 M/mm3 (3.60-5.2); RDW 16.1 % (11.6-15.6); WHITE BLOOD COUNT 8.5 K/mm3 (4.0-10.0)
[2023-11-26 11:27] LABS: CHLORIDE 97 mmol/L (98-107); POTASSIUM 4.5 mmol/L (3.5-5.1); SODIUM 133 mmol/L (136-145)
[2023-11-26 11:29] LABS: CALCIUM 9.3 mg/dL (8.5-10.1)
[2023-11-26 11:30] LABS: ANION GAP 13 mmol/L (4-13); BLOOD UREA NITROGEN 58.6 mg/dL (7-18); CO2 23 mmol/L (21-32); GLUCOSE,RANDOM 264 mg/dL (74-106); MAGNESIUM 2.5 mg/dL (1.8-2.4)
[2023-11-26 11:36] LABS: ALK PHOS 238 U/L (45-117); BILIRUBIN,TOTAL 0.9 mg/dL (0.2-1); SGOT/AST 16 U/L (15-37); SGPT/ALT 18 U/L (13-61); TOT PROT 7.8 g/dl (6.4-8.2)
[2023-11-26 12:06] LABS: PHOSPHOROUS 9.1 mg/dL (2.5-4.9)
[2023-11-26] MEDS ORDERED: VALSARTAN 80 MG TABLET ONE (13:04)
[2023-11-26] MEDS ORDERED: amLODIPine BESYLATE 5 MG TABLET (FP) ONE (13:04)
[2023-11-26] MEDS: VALSARTAN 40 MG TABLET PO ONE (13:11)
[2023-11-26] MEDS: amLODIPine BESYLATE 5 MG TABLET (FP) PO ONE (13:11)
[2023-11-26] MEDS ORDERED: SODIUM CHLORIDE 250 ML IV PRN (14:21)
[2023-11-26] MEDS: SEVELAMER CARBONATE 800 MG TAB (FP) PO SCH (16:51)
[2023-11-26] MEDS: DIVALPROEX SODIUM 250 MG TABLET E.C. PO SCH (21:29)
[2023-11-26] MEDS: ATORVASTATIN CA 80 MG TABLET (FP) PO SCH (21:29)
[2023-11-26] MEDS: MELATONIN 5 MG TABLETS PO ONE (21:30)
[2023-11-27 08:41] LABS: BASO % 0.4 % (0-2.0); EOS % 1.5 % (0-4.5); HEMATOCRIT 31.8 % (32.4-45.2); HEMOGLOBIN 10.8 GM/dL (10.7-15.3); LYMPH % 10.7 % (8-40); MCH 31.5 pg (25.7-33.7); MCHC 34.1 g/dl (32.0-36.0); MEAN CELL VOLUME 92.3 fl (80-96); MEAN PLT VOLUME 7.5 fl (7.5-11.1); MONO % 5.8 % (3.8-10.2); NEUT % 81.6 % (42.8-82.8); PLATELET COUNT 286 10^3/uL (134-434); RBC 3.44 M/mm3 (3.60-5.2); RDW 16.8 % (11.6-15.6); WHITE BLOOD COUNT 8.3 K/mm3 (4.0-10.0)
[2023-11-27 08:57] LABS: CHLORIDE 99 mmol/L (98-107); POTASSIUM 4.5 mmol/L (3.5-5.1); SODIUM 136 mmol/L (136-145)
[2023-11-27 08:59] LABS: ALBUMIN 2.8 g/dl (3.4-5.0); ANION GAP 17 mmol/L (4-13); BLOOD UREA NITROGEN 69.4 mg/dL (7-18); CALCIUM 9.2 mg/dL (8.5-10.1); CO2 20 mmol/L (21-32); GLUCOSE,RANDOM 124 mg/dL (74-106)
[2023-11-27 09:01] LABS: MAGNESIUM 2.3 mg/dL (1.8-2.4)
[2023-11-27 09:03] LABS: CREATININE 6.9 mg/dL (0.55-1.3); SGOT/AST 15 U/L (15-37); SGPT/ALT 15 U/L (13-61)
[2023-11-27 09:05] LABS: BILIRUBIN,TOTAL 1.1 mg/dL (0.2-1); TOT PROT 7.7 g/dl (6.4-8.2)
[2023-11-27 09:06] LABS: ALK PHOS 223 U/L (45-117)
[2023-11-27 09:37] LABS: PHOSPHOROUS 9.6 mg/dL (2.5-4.9)
[2023-11-27] MEDS ORDERED: VALSARTAN 40 MG TABLET PO SCH (10:00)
[2023-11-27] MEDS: LISINOPRIL 20 MG TABLET PO SCH (10:58)
[2023-11-27] MEDS: ASPIRIN 81 MG CHEWABLE TABLETS PO SCH (10:58)
[2023-11-27] MEDS: amLODIPine BESYLATE 5 MG TABLET (FP) PO SCH (10:58)
[2023-11-27] MEDS: ISOSORBIDE MONONITRATE 30 MG TAB.SR.24H (FP) PO SCH (10:58)
[2023-11-27] MEDS ORDERED: SODIUM CHLORIDE 250 ML IV PRN (13:06)
[2023-11-27 15:35] VITALS: BMI 21.2
[2023-11-27] MEDS: DIVALPROEX SODIUM 500 MG TABLET E.C. PO SCH (22:03)
[2023-11-29] MEDS: MELATONIN 5 MG TABLETS PO ONE (01:25)
[2023-11-30] MEDS ORDERED: SODIUM CHLORIDE 250 ML IV PRN (17:49)
[2023-11-30 18:44] LABS: HEMATOCRIT 32.2 % (32.4-45.2); HEMOGLOBIN 10.6 GM/dL (10.7-15.3); MCH 30.7 pg (25.7-33.7); MCHC 32.9 g/dl (32.0-36.0); MEAN CELL VOLUME 93.3 fl (80-96); MEAN PLT VOLUME 7.5 fl (7.5-11.1); PLATELET COUNT 257 10^3/uL (134-434); RBC 3.45 M/mm3 (3.60-5.2)
[2023-11-30 18:59] LABS: POTASSIUM 4.3 mmol/L (3.5-5.1)
[2023-11-30 19:02] LABS: CALCIUM 8.6 mg/dL (8.5-10.1)
[2023-11-30 19:03] LABS: ALBUMIN 2.6 g/dl (3.4-5.0)
[2023-11-30 19:04] LABS: BLOOD UREA NITROGEN 33.9 mg/dL (7-18)
[2023-11-30 19:06] LABS: CREATININE 4.9 mg/dL (0.55-1.3)
[2023-11-30] MEDS: HEPARIN NA (PORCINE) 5,000 UNITS/ML 1ML VIAL IVPUSH ONE (19:06)
[2023-11-30 19:08] LABS: BILIRUBIN,TOTAL 0.7 mg/dL (0.2-1); TOT PROT 7.5 g/dl (6.4-8.2)
[2023-11-30] MEDS: EPOETIN ALFA-EPBX 4,000 UNIT/ML VIAL IVPUSH ONE (19:39)
[2023-12-02 04:39] VITALS: RESP 18
[2023-12-02] MEDS ORDERED: SODIUM CHLORIDE 250 ML IV PRN (12:44)
[2023-12-02 15:02] VITALS: BP 126/66; PULSE 65; TEMP 98.4
[2023-12-03] MEDS ORDERED: EPOETIN ALFA-EPBX 4,000 UNIT/ML VIAL SQ ONE (12:44)
== END 2023-12-02 18:47 | disposition home health service (06) | DRG 551 ==
LOC: JER 07:36 → JERBED 12:18 → J6S 14:12 → OBSVTOIN 11-29 10:13
PROVIDERS: ADMIT Internal Medicine; ATTEND Internal Medicine
PROC: 5A1D90Z Performance of Urinary Filtration, Continuous, Greater than 18 hours Per Day (ICD-10-PCS; principal; 2023-11-27)
PROC: 5A1D90Z Performance of Urinary Filtration, Continuous, Greater than 18 hours Per Day (ICD-10-PCS; 2023-11-28)
PROC: 5A1D90Z Performance of Urinary Filtration, Continuous, Greater than 18 hours Per Day (ICD-10-PCS; 2023-11-30)
DX: M54.2 Cervicalgia (principal); N18.6 End stage renal disease; I13.2 Hypertensive heart and chronic kidney disease with heart failure and with stage 5 chronic kidney disease, or end stage renal disease; I50.32 Chronic diastolic (congestive) heart failure; M54.12 Radiculopathy, cervical region; I25.10 Atherosclerotic heart disease of native coronary artery without angina pectoris; E11.22 Type 2 diabetes mellitus with diabetic chronic kidney disease; F03.90 Unspecified dementia, unspecified severity, without behavioral disturbance, psychotic disturbance, mood disturbance, and anxiety; I65.29 Occlusion and stenosis of unspecified carotid artery; I44.0 Atrioventricular block, first degree; R80.9 Proteinuria, unspecified; E83.39 Other disorders of phosphorus metabolism; Z86.73 Personal history of transient ischemic attack (TIA), and cerebral infarction without residual deficits; Z99.2 Dependence on renal dialysis
CPT/HCPCS: 36415; 70450-TC; 70498-TC; 71045-TC-FY; 72125-TC; 76705-TC; 80048; 80053; 82962; 83735; 84100; 84443; 84484; 85025; 85027; 86803; 87340; 93005; 93010; 93880-TC; 99285-25; G0378; J1644; Q5106